=== PATIENT | female | born 1950 | race Caucasian/White ===

== ENCOUNTER 2021-08-08 09:01 | Outpatient (REF) | payer OTHER, SELFPAY ==
--- NOTE | ~2021-08-08 | XR_ITS ---
EXAMINATION: XR SACROILIAC JOINTS XR LUMBAR SPINE XR SHOULDER, RIGHT CLINICAL INFORMATION: Spondylosis without myelopathy or radiculopathy. COMPARISON: None. TECHNIQUE: Lumbar spine 3 views. Right shoulder 4 views. SI joints 3 views. FINDINGS: LUMBAR SPINE: There is normal lumbar lordosis. There is mild loss of L5-S1 disc height. The vertebral heights and alignment are normal. There is no visible acute fracture, dislocation or subluxation. No lytic or sclerotic process seen. The paravertebral soft tissues are normal. SI JOINTS: There is normal symmetry of bilateral SI joints without sclerosis. No fracture or lytic process seen involving the sacrum. There is moderate stool in the right colon. RIGHT SHOULDER: There is no visible acute fracture, dislocation or subluxation seen. Mild loss of right AC joint space with periarticular spurring. There are no loose bodies. The soft tissues are normal. There is nonspecific sclerosis overlying the right posterior 3rd rib adjacent to the costovertebral junction. There is mild haziness in the right upper lobe on AP view question artifact versus underlying infiltrate. XR/XR sacroiliac joint min 3V IMPRESSION: Unremarkable lumbar spine exam. No visible acute fracture or dislocation seen. Mild degenerative disc changes L5-S1 disc level. Unremarkable SI joints and sacrum. Mild periarticular spurring with loss of right AC joint space suggestive of degenerative arthritis. Nonspecific sclerosis right posterior 3rd rib. Mild haziness in the right upper lobe and second interspace on AP view question atelectasis/infiltrate versus artifact.
--- NOTE | ~2021-08-08 | XR_ITS ---
EXAMINATION: XR SACROILIAC JOINTS XR LUMBAR SPINE XR SHOULDER, RIGHT CLINICAL INFORMATION: Spondylosis without myelopathy or radiculopathy. COMPARISON: None. TECHNIQUE: Lumbar spine 3 views. Right shoulder 4 views. SI joints 3 views. FINDINGS: LUMBAR SPINE: There is normal lumbar lordosis. There is mild loss of L5-S1 disc height. The vertebral heights and alignment are normal. There is no visible acute fracture, dislocation or subluxation. No lytic or sclerotic process seen. The paravertebral soft tissues are normal. SI JOINTS: There is normal symmetry of bilateral SI joints without sclerosis. No fracture or lytic process seen involving the sacrum. There is moderate stool in the right colon. RIGHT SHOULDER: There is no visible acute fracture, dislocation or subluxation seen. Mild loss of right AC joint space with periarticular spurring. There are no loose bodies. The soft tissues are normal. There is nonspecific sclerosis overlying the right posterior 3rd rib adjacent to the costovertebral junction. There is mild haziness in the right upper lobe on AP view question artifact versus underlying infiltrate. XR/XR lumbar spine 2-3V IMPRESSION: Unremarkable lumbar spine exam. No visible acute fracture or dislocation seen. Mild degenerative disc changes L5-S1 disc level. Unremarkable SI joints and sacrum. Mild periarticular spurring with loss of right AC joint space suggestive of degenerative arthritis. Nonspecific sclerosis right posterior 3rd rib. Mild haziness in the right upper lobe and second interspace on AP view question atelectasis/infiltrate versus artifact.
--- NOTE | ~2021-08-08 | XR_ITS ---
EXAMINATION: XR SACROILIAC JOINTS XR LUMBAR SPINE XR SHOULDER, RIGHT CLINICAL INFORMATION: Spondylosis without myelopathy or radiculopathy. COMPARISON: None. TECHNIQUE: Lumbar spine 3 views. Right shoulder 4 views. SI joints 3 views. FINDINGS: LUMBAR SPINE: There is normal lumbar lordosis. There is mild loss of L5-S1 disc height. The vertebral heights and alignment are normal. There is no visible acute fracture, dislocation or subluxation. No lytic or sclerotic process seen. The paravertebral soft tissues are normal. SI JOINTS: There is normal symmetry of bilateral SI joints without sclerosis. No fracture or lytic process seen involving the sacrum. There is moderate stool in the right colon. RIGHT SHOULDER: There is no visible acute fracture, dislocation or subluxation seen. Mild loss of right AC joint space with periarticular spurring. There are no loose bodies. The soft tissues are normal. There is nonspecific sclerosis overlying the right posterior 3rd rib adjacent to the costovertebral junction. There is mild haziness in the right upper lobe on AP view question artifact versus underlying infiltrate. XR/XR shoulder RT min 2V IMPRESSION: Unremarkable lumbar spine exam. No visible acute fracture or dislocation seen. Mild degenerative disc changes L5-S1 disc level. Unremarkable SI joints and sacrum. Mild periarticular spurring with loss of right AC joint space suggestive of degenerative arthritis. Nonspecific sclerosis right posterior 3rd rib. Mild haziness in the right upper lobe and second interspace on AP view question atelectasis/infiltrate versus artifact.
[2021-08-08 12:14] LABS: Erythrocyte Sedimentation Rate 2 MM/HR (0-20)
== END 2021-08-08 09:02 | disposition home or self-care (01) ==
LOC: HO.XRAY 09:01
PROVIDERS: PCP Internal Medicine; Visit Provider Internal Medicine Rheumatology
DX: M54.50 Low back pain, unspecified (principal); M47.816 Spondylosis without myelopathy or radiculopathy, lumbar region; M19.049 Primary osteoarthritis, unspecified hand; M25.511 Pain in right shoulder
CPT/HCPCS: 36415; 72100; 72202; 73030; 85652; 86140; Q3014

== ENCOUNTER → 2021-08-28 10:43 | Outpatient (BNVA) | payer MEDICARE, SELFPAY | PROVIDERS: PCP Internal Medicine; Visit Provider Internal Medicine Rheumatology | DX: M47.816 Spondylosis without myelopathy or radiculopathy, lumbar region (principal); M75.81 Other shoulder lesions, right shoulder; M19.049 Primary osteoarthritis, unspecified hand; M79.7 Fibromyalgia; K21.9 Gastro-esophageal reflux disease without esophagitis | CPT/HCPCS: 99212 ==

== ENCOUNTER → 2021-11-28 10:26 | Outpatient (BNVA) | payer MEDICARE, SELFPAY | PROVIDERS: PCP Internal Medicine; Visit Provider Internal Medicine Rheumatology | DX: M79.7 Fibromyalgia (principal); M81.0 Age-related osteoporosis without current pathological fracture; M47.816 Spondylosis without myelopathy or radiculopathy, lumbar region; Z79.899 Other long term (current) drug therapy | CPT/HCPCS: 99212 ==

== ENCOUNTER → 2022-02-05 10:06 | Outpatient (BNVA) | payer MEDICARE, SELFPAY | PROVIDERS: PCP Internal Medicine; Visit Provider Internal Medicine | DX: R10.9 Unspecified abdominal pain (principal); R14.0 Abdominal distension (gaseous); K59.00 Constipation, unspecified; R19.7 Diarrhea, unspecified; Z86.010 Personal history of colon polyps | CPT/HCPCS: 99202 ==

== ENCOUNTER → 2022-02-26 12:15 | Outpatient (BNVA) | payer MEDICARE, SELFPAY | PROVIDERS: PCP Internal Medicine; Visit Provider Internal Medicine | DX: R10.9 Unspecified abdominal pain (principal); R14.0 Abdominal distension (gaseous); K59.00 Constipation, unspecified; R19.7 Diarrhea, unspecified; Z86.010 Personal history of colon polyps | CPT/HCPCS: 99212 ==

== ENCOUNTER 2023-02-04 11:18 | Outpatient (AMB) | payer MEDICARE, SELFPAY ==
--- NOTE | 2023-02-04 11:47 | MHC.OFFVIS ---
Intake Vital Signs 02/04/23 11:57 Height 5 ft 3 in Weight 178 lb 2.136 oz BMI 31.6 BP 100/62 Blood Pressure Location Lt brachial Position Sitting Pulse 68 Pulse Source Pulse Oximeter Pulse Oximetry (%) 96 Oxygen Delivery Method Room Air Intake Visit Reasons: OA Intake Note: Patient presents today for OA follow up. 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 Beware of potential sedation. rosuvastatin 10 mg PO BEDTIME sod sulf-pot chloride-mag sulf 1.479-0.188- 0.225 gram (Sutab) PO PER PKG DIR HPI HPI Comments History of Present Illness Details The patient returns for evaluation of her osteoarthritis and fibromyalgia. She was last seen in November of 2021. She relates difficulty with transportation so has not been able to keep many appointments. She continues to complain of lower back pain that radiates to the left buttock more than the right. It is worse with more prolonged standing or walking. She says it does limit her walking at this point. There is no paresthesia in the leg. There is no change in bowel or bladder habits. She remains on duloxetine 60 mg daily. She had been on Celebrex and Lyrica but decided to stop them as they were not that helpful. She feels that taking the cyclobenzaprine was helpful and it did not make her sedated. She had some GI appointments that she could not keep because of transportation issues. She again wants to do something about the left buttock and lower back pains. She says she has been to 2 pain clinics and was offered injections but they were not helpful. She did see a surgeon a few years ago and no surgery was recommended. Other areas of pain besides the back and buttock include the hands, shoulders, and neck. She has not seen any joint swelling. With difficulty walking she spent more time at home and feels somewhat isolated. She also says that she has been having trouble communicating with people, she often makes statements that people do not understand or agree with and that upsets them. 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 Osteoporosis Right rotator cuff tendinitis Social History (Updated 02/04/23 @ 11:57 by CORTNEY Cheek) Household Members Other:: lives alone Housing: Apartment Are you a primary youth care professional to a significant other at home: No Do you presently have visiting nurse or other home services: No 75 years or older and lives alone: No Alcohol intake: never Patient Tobacco Use Status: Current everyday Tobacco user Tobacco use type: Cigarette Cigarette Packs Per Day: 7 e-Cigarette/Vaping Use: Never Used service: No Current occupational status: disabled Review of Systems Const Details: She describes low energy and fatigue. Our records show she has lost some weight. She was not intending to lose weight. Negative for appetite change, fever, chills, malaise Eyes Details: Negative for vision change, dry eyes,headaches and dizziness ENT Details: Negative for dysphagia, hearing change, tinnitus, oral ulcer, nose bleeds and oral dryness. Card Details: Negative chest pain, edema and syncope Resp Details: Negative for SOB, cough and wheezing GI Details: Occasional heartburn and bloating. Negative nausea, abdominal pain, bowel changes, diarrhea, constipation and bloody stool. Skin/Breast Details: Negative for itching, rash, hives, Raynaud's symptoms, sun sensitivity, and skin cancer Psych Details: Feels isolated, says family members do not want to talk to her. Endo Details: Negative for polyuria and polydypsia Billy/Lymph Details: Negative for excessive bruising or bleeding. Physical Exam Vital Signs: Last Vital Signs Pulse 68 02/04/23 11:57 BP 100/62 02/04/23 11:57 Pulse Ox 96 02/04/23 11:57 Oxygen Delivery Method Room Air 02/04/23 11:57 BMI result Body Mass Index 31.6 APPEARANCE: Patient in no acute distress EYES no redness, pupils equal and reactive to light, eyelids normal EXTREMITIES:? No edema, no calf tenderness, normal peripheral pulses. NEURO:? Oriented and alert x3.? No focal weakness.? Reflexes symmetric.? Gait normal. SKIN:? No inflammatory or neoplastic lesions.? Normal color and turgor JOINT EXAM:.?? Cervical Spine:.? Mild discomfort with extremes of range of motion.? There is some bilateral posterior? muscle tenderness. Thoracic Spine:.? No scoliosis.? No tenderness on palpation. Lumbar Spine:.? Alignment normal.? Lumbar pain with flexion at 60 degrees.? Straight leg raising is negative.? No tenderness. Chest Wall:? There is some prominence of the right acromioclavicular joint.? This area is not tender or fluctuant.? Otherwise this region has no tenderness, swelling, increased warmth or erythema. Hands:.? Right:? There is some bony enlargement without tenderness at the thumb IP and at the 2nd through 5th PIP joints.? Elsewhere no swelling or tenderness, no thenar atrophy or sensory loss.? Left:? Mild bony enlargement at the thumb IP and the 2nd PIP joint.? The PIP has some flexion deformity and is minimally tender.? There is slight bony enlargement and tenderness at the 2nd D IP.? No thenar atrophy or sensory loss. Wrists:.? Right:? There is a nontender 1 cm lump on the dorsum of the wrist consistent with a ganglion.? There is no other swelling in the wrist and it is not tender.? Pain-free range of motion exists.? Left:Normal pain-free range of motion without tenderness, swelling, increased warmth or erythema. Elbows:. Normal pain-free range of motion without tenderness, swelling, increased warmth or erythema. Shoulders:? Right:? Slight discomfort with extremes of motion.? Most of the discomfort is felt anteriorly and over the trapezius.? Those areas have some slight tenderness.? There is no swelling or abductor weakness.? Left:Full range of motion without pain. No tenderness, weakness, swelling, increased warmth or erythema. Hips:.? Left:? Normal range of motion however with some discomfort in the lumbar and posterolateral buttock regions at the extremes of external rotation or abduction. No groin pain with motion.? Right:? The? range of motion without pain. Hip bursa:.? Mild trochanteric tenderness. Knees:.?? Normal pain-free range of motion without tenderness, swelling, increased warmth or erythema.? There is no effusion or crepitation Ankles:.? Normal pain-free range of motion without tenderness, swelling, increased warmth or erythema. Feet:.? Normal pain-free range of motion with mild 1st MTP bony enlargement, the right is slightly tender.? Elsewhere no? tenderness, swelling, increased warmth or erythema. Tender points:? Mild tenderness to digital palpation at the both trapezius, both second rib, both knees, greater trochanter? area bilaterally. Results Reviewed Results Reviewed: [address] [address] XRay Report Signed Patient: Laura Mcgraw MR#: [id number] : 1950 Acct:[id number] Age/Sex: 71 / F ADM Date: 08/08/[address]: Jose J Hadley MD Ordering Physician: Jose J Hadley MD Date of Service: 08/08/21 Procedure(s): XR sacroiliac joint min 3V Accession Number(s): [id number] cc: Jose J Hadley MD~ EXAMINATION: XR SACROILIAC JOINTS XR LUMBAR SPINE XR SHOULDER, RIGHT CLINICAL INFORMATION: Spondylosis without myelopathy or radiculopathy. COMPARISON: None. TECHNIQUE: Lumbar spine 3 views. Right shoulder 4 views. SI joints 3 views. FINDINGS: LUMBAR SPINE: There is normal lumbar lordosis. There is mild loss of L5-S1 disc height. The vertebral heights and alignment are normal. There is no visible acute fracture, dislocation or subluxation. No lytic or sclerotic process seen. The paravertebral soft tissues are normal. SI JOINTS: There is normal symmetry of bilateral SI joints without sclerosis. No fracture or lytic process seen involving the sacrum. There is moderate stool in the right colon. RIGHT SHOULDER: There is no visible acute fracture, dislocation or subluxation seen. Mild loss of right AC joint space with periarticular spurring. There are no loose bodies. The soft tissues are normal. There is nonspecific sclerosis overlying the right posterior 3rd rib adjacent to the costovertebral junction. There is mild haziness in the right upper lobe on AP view question artifact versus underlying infiltrate. XR/XR sacroiliac joint min 3V IMPRESSION: Unremarkable lumbar spine exam. No visible acute fracture or dislocation seen. Mild degenerative disc changes L5-S1 disc level. Unremarkable SI joints and sacrum. Mild periarticular spurring with loss of right AC joint space suggestive of degenerative arthritis. Nonspecific sclerosis right posterior 3rd rib. Mild haziness in the right upper lobe and second interspace on AP view question atelectasis/infiltrate versus artifact. Dictated By: Shad Causey MD Assessment & Plan Assessment & Plan (1) Osteoarthritis of hand: Code(s): M19.049 - Primary osteoarthritis, unspecified hand (2) Osteoarthritis of lumbar spine: Code(s): M47.816 - Spondylosis without myelopathy or radiculopathy, lumbar region Plan There do not appear to be any signs of an active inflammatory arthritis. There are findings of OA in the hands. She does have low back pain symptoms radiating to the buttock, worse with walking suggesting a spinal stenosis type picture from degenerative disease. Apparently she has sought out pain management before but refuses to reconsider that because she feels they will just do the same procedures and she does not want any needles. NSAIDs have not been tolerated or helpful recently. She also seems to have some element of fibromyalgia with many tender points. I did restart her cyclobenzaprine which she describes as being helpful but warned her that it could be sedating and she should only take it at night. She complains of loneliness and has trouble dealing with family members. Behavior health assessment would be appropriate here. She does not know how to access mental health through her insurance and we went over on her insurance card that there was a telephone number for behavior health consultations. She would let me know if she thinks she needs a referral. A follow-up in 6 months seems reasonable. Medications: Refilled cyclobenzaprine 5 mg PO BID PRN 30 tabs 3RF muscle spasm M79.7 - Fibromyalgia Coding Level of Care Code Tele Est Pt Level 3 (17774) Diagnoses Osteoarthritis of hand M19.049 Osteoarthritis of lumbar spine M47.816
[2023-02-04 11:57] VITALS: BP 100/62; PULSE 68; O2SAT 96; BMI 31.6
== END 2023-02-04 12:50 | disposition home or self-care (01) ==
PROVIDERS: PCP Internal Medicine; Visit Provider Internal Medicine Rheumatology
DX: M19.049 Primary osteoarthritis, unspecified hand (principal); M47.816 Spondylosis without myelopathy or radiculopathy, lumbar region
CPT/HCPCS: 99213

== ENCOUNTER → 2023-02-04 11:18 | Outpatient (BNVA) | payer MEDICARE, SELFPAY | PROVIDERS: PCP Internal Medicine; Visit Provider Internal Medicine Rheumatology | DX: M47.816 Spondylosis without myelopathy or radiculopathy, lumbar region (principal); M19.041 Primary osteoarthritis, right hand; M19.042 Primary osteoarthritis, left hand | CPT/HCPCS: 99212 ==

== ENCOUNTER 2023-07-23 10:59 | Outpatient (AMB) | payer MEDICARE, SELFPAY ==
--- NOTE | 2023-07-23 11:06 | A.SPINEOV_ITS ---
Intake Intake Visit Reasons: lower back & hip chronic pain Intake Note: Ms. Mcgraw is here today c/o low back pain that radiates to Glutes down to the back of the knees. Administrative Sales Assistant Required: No Allergies No Known Allergies Allergy (Verified 07/23/23 11:08) Assessment & Plan Assessment & Plan (1) Chronic left hip pain: Code(s): M25.552 - Pain in left hip; G89.29 - Other chronic pain Plan Dear colleague On 07/23/2023, I saw Laura Mcgraw for right hip pain. She self-referred. HPI: Patient states that for more than 20 years she is having chronic pain in her left hip. Pain is severe and prevents her from doing long walks. She denies radiating pain down her leg. No motor sensory deficits. She has seen multiple orthopedic surgeons. The last 1 advised a cortisone injection. The following conservative treatment options were tried without success antiinflammatories, tylenol, physician guided home exercise plan, cortisone shots Physical Exam: Inward and outward rotation of the left hip is very painful. Straight leg raise is negative. No neurological deficits. Radiological Studies: An MRI of the left hip reports several abnormalities in this region. I also review an x-ray of the lumbar spine of July 2021 that showed no significant abnormality Impression/Plan: This patient is suffering from left hip pathology. I told her to return to an orthopedic surgeon as these symptoms are not related to the spine. Thank you for allowing me to participate in your patients care. total time spent was 30 minutes in counseling ,coordination of plan, personal review of imaging. Benny Guillen MD, PhD Spine Fellowship Trained Neurosurgeon Director, [facility] Coding Level of Care Code New Pt Level 3 (04049) Diagnoses Chronic left hip pain M25.552; G89.29
== END 2023-07-23 11:29 | disposition home or self-care (01) ==
PROVIDERS: PCP Internal Medicine; Visit Provider Neurological Surgery
DX: M25.552 Pain in left hip (principal); G89.29 Other chronic pain
CPT/HCPCS: 99203

== ENCOUNTER → 2023-07-23 10:59 | Outpatient (BNVA) | payer MEDICARE, SELFPAY | PROVIDERS: PCP Internal Medicine; Visit Provider Neurological Surgery | DX: M25.552 Pain in left hip (principal); G89.29 Other chronic pain | CPT/HCPCS: 99202 ==

== ENCOUNTER 2023-08-06 13:08 | Outpatient (REF) | payer MEDICARE, SELFPAY ==
[2023-08-06 17:22] LABS: Anion Gap 12 (12-20); Blood Urea Nitrogen 13 mg/dL (9-16); Calcium 8.9 mg/dL (8.4-10.2); Carbon Dioxide 25 mmol/L (22-29); Chloride 107 mmol/L (96-108); Estimated Glomerular Filt Rate > 60; Glucose Random 85 mg/dL (60-115); Potassium 4.3 mmol/L (3.3-5.1); Sodium 140 mmol/L (135-145)
== END 2023-08-06 13:09 | disposition home or self-care (01) ==
LOC: HO.LAB 13:08
PROVIDERS: PCP Internal Medicine; Visit Provider Student in an Organized Health Care Education/Training Program
DX: M19.049 Primary osteoarthritis, unspecified hand (principal); M79.7 Fibromyalgia; M70.72 Other bursitis of hip, left hip
CPT/HCPCS: 36415; 80048; 99212

== ENCOUNTER 2023-08-06 13:08 | Outpatient (AMB) | payer MEDICARE, SELFPAY ==
[2023-08-06 13:43] VITALS: BP 112/66; PULSE 87; O2SAT 95; BMI 33.1
--- NOTE | 2023-08-06 13:43 | MHC.OFFVIS ---
Intake Vital Signs 08/06/23 13:43 Height 5 ft 3 in Weight 186 lb 15.232 oz BMI 33.1 BP 112/66 Blood Pressure Location Rt brachial Position Sitting Pulse 87 Pulse Source Pulse Oximeter Pulse Oximetry (%) 95 Oxygen Delivery Method Room Air Intake Visit Reasons: OA Intake Note: Patient last seen presents today for follow up and test results. Pain in hips, thighs and glutes. Uses heat, ointment and has muscle relaxers. 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 Her 1st visit with me. She used to follow-up with Dr. Hadley. Patient states that she takes that duloxetine 60 mg daily, she takes the Lyrica 50 mg once daily, not twice daily as prescribed. She has been having pain in her left buttock, hip and bilateral thigh area. She had an MRI of the left hip 04/2023 which showed iliopsoas bursitis and gluteus tendinopathy. Patient is not interested in pain management or sports medicine evaluation. She continues to have diffuse itching, tingling and numbness as well as pain in her hands, back. Most recent history by Dr. Hadley 01/2023: The patient returns for evaluation of her osteoarthritis and fibromyalgia. She was last seen in November of 2021. She relates difficulty with transportation so has not been able to keep many appointments. She continues to complain of lower back pain that radiates to the left buttock more than the right. It is worse with more prolonged standing or walking. She says it does limit her walking at this point. There is no paresthesia in the leg. There is no change in bowel or bladder habits. She remains on duloxetine 60 mg daily. She had been on Celebrex and Lyrica but decided to stop them as they were not that helpful. She feels that taking the cyclobenzaprine was helpful and it did not make her sedated. She had some GI appointments that she could not keep because of transportation issues. She again wants to do something about the left buttock and lower back pains. She says she has been to 2 pain clinics and was offered injections but they were not helpful. She did see a surgeon a few years ago and no surgery was recommended. Other areas of pain besides the back and buttock include the hands, shoulders, and neck. She has not seen any joint swelling. With difficulty walking she spent more time at home and feels somewhat isolated. She also says that she has been having trouble communicating with people, she often makes statements that people do not understand or agree with and that upsets them. 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 Low back pain Social History Household Members Other:: lives alone Housing: Apartment Are you a primary career portals teacher to a significant other at home: No Do you presently have visiting nurse or other home services: No 75 years or older and lives alone: No Alcohol intake: never Patient Tobacco Use Status: Current everyday Tobacco user Tobacco use type: Cigarette Cigarette Packs Per Day: 7 e-Cigarette/Vaping Use: Never Used service: No Current occupational status: disabled Review of Systems ENT Reports neck pain Musc Reports back pain, Reports arthralgias, Reports neck pain, Reports numbness, Reports stiffness and Reports tingling Neuro Reports numbness and Reports tingling Physical Exam Vital Signs: Last Vital Signs Pulse 87 08/06/23 13:43 BP 112/66 08/06/23 13:43 Pulse Ox 95 08/06/23 13:43 Oxygen Delivery Method Room Air 08/06/23 13:43 BMI result Body Mass Index 33.1 Const General: cooperative, healthy appearing and comfortable Nutritional Appearance: obese Orientation/consciousness: patient oriented x3 Limitations: no limitations HEENT Head: Yes normocephalic and Yes atraumatic Mouth: moist mucous membranes Resp Effort & Inspection: normal respiratory effort and able to speak in complete sentences Auscultation: clear to auscultation bilaterally Cardio Rate: regular rate Rhythm: regular rhythm Heart sounds: S1 normal heart sound present Skin General skin exam: no rashes or lesions noted Neuro General: patient oriented x3 Extrem Other: Osteoarthritic changes of both hands with no active synovitis Normal nailfold capillaroscopy Normal range of motion of hands, wrists, elbows and shoulders without pain Proximal muscle strength 5/5 all 4 extremities Some pain with left hip flexion Assessment & Plan Assessment & Plan (1) Fibromyalgia: Code(s): M79.7 - Fibromyalgia Plan: 73-year-old female with fibromyalgia and degenerative arthritis returns for follow-up. This is her 1st visit with me. She used to follow-up with Dr. Hadley. We had a long conversation today. Discussed management of fibromyalgia with patient. Is a noninflammatory, non-autoimmune central afferent processing disorder leading to a diffuse pain syndrome. I suggested that patient try to address her underlying psychiatric issues, anxiety/depression. She recently established care with a psychotherapist. I suggested a referral for a sleep study by her PCP. We discussed the importance of exercise for fibromyalgia management. I suggested aquatherapy. Patient is on duloxetine 60 mg daily. She is taking the Lyrica 50 mg once daily, not twice daily as prescribed. She will start taking it twice daily (2) Iliopsoas bursitis of left hip: Code(s): M70.72 - Other bursitis of hip, left hip Plan: Patient is not interested in physical therapy. Not interested in pain management or physiatry evaluation. Can consider short NSAID trial. But patient needs BMP 1st to monitor her kidney function Plan I spent 47 minutes reviewing patient's chart, evaluating patient, ordering diagnostic workup, counseling patient and documenting in the chart Orders: Orders Basic Metabolic Panel Today M19.049 - Primary osteoarthritis, unspecified hand Coding Level of Care Code Est Pt Level 5 (11735) Diagnoses Fibromyalgia M79.7 Iliopsoas bursitis of left hip M70.72
== END 2023-08-06 14:18 | disposition home or self-care (01) ==
PROVIDERS: PCP Internal Medicine; Visit Provider Student in an Organized Health Care Education/Training Program
DX: M79.7 Fibromyalgia (principal); M70.72 Other bursitis of hip, left hip
CPT/HCPCS: 99215

== ENCOUNTER 2024-09-23 13:00 | Outpatient (AMB) | payer MEDICARE, MEDICAID, SELFPAY ==
--- OUTSIDE RECORDS SUMMARY | 2024-09-23 13:02 | XMS_ITS | Data Portability ---
Author Organization [facility], Main Office Address [address] [place] [address] Care Team Providers Care Valance Cutter Name Role Phone THUY FERNANDES Primary Care Provider ROSA HERNANDEZ Referring Provider [facility] Referring Pr ovider [facility] Gum Sprayer [facility] Referring Provider ISAEL BAKER Referring Provider [phone] [facility] (NADEEM MURCIA) Referring Provider MANJIT HADLEY Referring Provider [facility] SAMAN CALDERON Referring Provider Assessment Encounter Date Assessment Date Assessment LastModified by Organization Details LastModified Time 05/30/2022 05/30/2022 This service was provided using telemedicine. Patient consented to telephone visit Patient was located in the [facility]. Provider was located in the office. No other persons participated in the telemedicine visit except for the patient unless otherwise indicated here. Total time of visit was 20 minutes. [email or web address] Not available 05/31/2022 11:17:50 09/05/2022 09/05/2022 This service was provided using telemedicine. Patient consented to telephone visit Patient was located in the [facility]. Provider was located in the office. No other persons participated in the telemedicine visit except for the patient unless otherwise indicated here. Total time of visit was 14 minutes. [email or web address] Not available 09/05/2022 13:58:08 Plan of Treatment Reminders Order Date Submit Date Provider Last Modified By Organization Details Last Modified Time Details Appointments None recor ded. Lab lipid panel , serum 2022 023 [email or web address] [facility], [address], [address], [place], [id number], 08:09:51 LDL, serum 2022 023 [email or web address] [facility], [address], [address], [place], [address], 08:09:51 CBC w/ auto diff 2022 023 KELSYE [facility], [address], [address], [place], [address], 15:44:38 BMP, serum or plasm a 2022 023 KELSEY [facility], [address], [address], [place], [address], 15:44:39 TSH, serum or plasm a 2022 023 KELSEY [facility], [address], [address], [place], [address], 15:44:39 unlis florencio lab - urina lysis w/ref issac cultu re 2022 023 KELSEY [facility], [address], [address], [place], [address], 21:21:42 lipid panel , serum 2022 023 KELSEY [facility], [address], [address], [place], [address], 21:46:23 LDL, serum 2022 023 KELSEY [facility], [address], [address], [place], [address], 3 21:46:20 CBC w/ auto diff 2022 023 KELSEY [facility], [address], [address], [place], [address], 3 20:10:19 BMP, serum or plasm a 2022 023 KELSEY [facility], [address], [address], [place], [address], 3 21:46:18 TSH, serum or plasm a 2022 023 KELSEY [facility], [address], [address], [place], [address], 3 21:46:23 enrique tin, serum or plasm a 2022 023 KELSEY [facility], [address], [address], [place], [address], 3 21:46:21 iron + total iron- renea ng capac ity (TIBC ), serum 2022 023 KELSEY [facility], [address], [address], [place], [address], 3 21:46:22 CMP, serum or plasm a 2021 022 KELSEY [facility], [address], [address], [place], [address], 2 21:57:49 CBC w/ auto diff 2021 022 KELSEY [facility], [address], [address], [place], [address], 21:05:07 lakeisha stero l, total , serum 2021 AIKEN [facility], [address], [address], [place], [address], 21:57:47 LDL, serum 2021 AIKEN [facility], [address], [address], [place], [address], 21:57:52 HDL lakeisha stero l, serum 2021 AIKEN [facility], [address], [address], [place], [address], 21:57:54 Referral derma tolog ist refer ral - Pruri tic disor reid 2022 023 davie [facility], [address], [address], [place], [address], 15:55:25 gastr oentjose estevezog ist refer ral - Needs colon cance r screjose nullg 2021 [facility], [address] [place] [address] Dr, [address], [place], [address], 21:24:27 Procedures colon oscop y genesis mckeon (PROC ) 2021 022 davie Not available 14:20:04 Surgeries None recor ded. Imaging None recor ded. Medication Orders dulox etine 60 mg capsu le,de layed relea se 2022 023 AIKEN [id number], [address] [place] [address], [address], [place], [id number], 15:44:35 trama dol 50 mg table t 2022 023 acegileramadelyno [facility] #[id number], [address], [facility] [address], [place], [place], [id number], 10:28:32 Patient TargetsNo targets recorded. Patient Instructions Encounter Date Encounter Id Patient Instructions Last Modified By Organization Details Last Modified Time 01/14/2022 [id number] irritable bowel syndrome: care instructions [email or web address] Not available 01/15/2022 10:32:18 learning about colon cancer [email or web address] Not available 01/18/2022 13:08:22 fibromyalgia: care instructions [email or web address] Not available 01/15/2022 10:32:18 high cholesterol: care instructions [email or web address] Not available 01/14/2022 14:55:17 05/30/2022 [id number] back care and preventing injuries: care instructions [email or web address] Not available 05/31/2022 11:18:42 getting back to normal after low back pain: care instructions acennerazzo Not available 05/31/2022 11:18:42 learning about relief for back pain acennerazzo Not available 05/31/2022 11:18:43 07/16/2022 [id number] fibromyalgia: care instructions acennerazzo Not available 07/16/2022 15:15:10 09/05/2022 [id number] blood in the urine: care instructions [email or web address] Not available 09/05/2022 13:58:15 02/17/2023 [id number] Peripheral Arterial Disease (PAD): Care Instructions [email or web address] Not available 02/17/2023 15:27:12 high cholesterol: care instructions [email or web address] Not available 02/17/2023 15:44:29 Reason for Referral Gum Sprayer Referral for Screening for malignant neoplasm of colon Needs colon cancer screening Referring Physician: [facility], Encounter Date: 01/14/2022 Spark Plug Tester Referral for P ruritic disorder Pruritic disorder Referring Physician: [facility], Encounter Date: 02/17/2023 Results Created Date Observation Date Name Description Value Unit Range Abnormal Flag Note LastModifiedBy Organization Detail LastModifiedTime 01/15/2001/14/2022 COMPL ETE BLOOD COUNT WBC 8.0 K/mm3 (4.0-1 1.0) Not Available [facility] (Centralized Electronic Ordering - All Locations) Patient Can Go To The Location Of Their Choice, 01/14/2022 21:05:07 01/15/20 22 01/14/2022 COMPL ETE BLOOD COUNT RBC 4.71 M/mm3 (4.20- 5.40) Not Available [facility] (Centralized Electronic Ordering - All Locations) Patient Can Go To The Location Of Their Choice, 01/14/2022 21:05:07 01/15/20 22 01/14/2022 COMPL ETE BLOOD COUNT HGB 14.3 gm/dL (11.7- 15.5) Not Available [facility] (Centralized Electronic Ordering - All Locations) Patient Can Go To The Location Of Their Choice, 01/14/2022 21:05:07 01/15/2001/14/2022 COMPL ETE BLOOD COUNT HCT 42.5 % (35.7- 45.8) Not Available [facility] (Centralized Electronic Ordering - All Locations) Patient Can Go To The Location Of Their Choice, 01/14/2022 21:05:07 01/15/2001/14/2022 COMPL ETE BLOOD COUNT MCV 90.2 fL (80.0- 100.0) Not Available [facility] (Centralized Electronic Ordering - All Locations) Patient Can Go To The Location Of Their Choice, 01/14/2022 21:05:07 01/15/2001/14/2022 COMPL ETE BLOOD COUNT MCH 30.4 pg (27.0- 34.0) Not Available [facility] (Centralized Electronic Ordering - All Locations) Patient Can Go To The Location Of Their Choice, 01/14/2022 21:05:07 01/15/20 22 01/14/2022 COMPL ETE BLOOD COUNT MCHC 33.6 g/dL (33.0- 37.0) Not Available [facility] (Centralized Electronic Ordering - All Locations) Patient Can Go To The Location Of Their Choice, 01/14/2022 21:05:07 09/19/20 22 01/14/2022 COMPL ETE BLOOD COUNT plt 321 K/mm3 (150-4 60) Not Available [facility] (Centralized Electronic Ordering - All Locations) Patient Can Go To The Location Of Their Choice, 01/14/2022 21:05:07 01/15/20 22 01/14/2022 COMPL ETE BLOOD COUNT RDW-SD 41.4 fL (<47.0 ) Not Available [facility] (Centralized Electronic Ordering - All Locations) Patient Can Go To The Location Of Their Choice, 01/14/2022 21:05:07 01/15/20 22 01/14/2022 COMPL ETE BLOOD COUNT MPV 10.0 fL (9.4-1 2.4) Not Available [facility] (Centralized Electronic Ordering - All Locations) Patient Can Go To The Location Of Their Choice, 01/14/2022 21:05:07 01/15/20 22 01/14/2022 COMPL ETE BLOOD COUNT automated NRBC 0.0 #/100 _WBC' s Not Available [facility] (Centralized Electronic Ordering - All Locations) Patient Can Go To The Location Of Their Choice, 01/14/2022 21:05:07 01/15/20 22 01/14/2022 COMPL ETE BLOOD COUNT abs. NRBC 0.0 K/mm3 Not Available [facility] (Centralized Electronic Ordering - All Locations) Patient Can Go To The Location Of Their Choice, 01/14/2022 21:05:07 01/15/20 22 01/14/2022 LAKEISHA STERO L, TOTAL cholesterol, total 310 mg/dL (<200) high Not Available [facility] (Centralized Electronic Ordering - All Locations) Patient Can Go To The Location Of Their Choice, 01/14/2022 21:57:47 01/15/20 22 01/14/2022 COMPR EHENS JERICA METAB OLIC PANL glucose 95 mg/dL (70-99 ) Not Available [facility] (Centralized Electronic Ordering - All Locations) Patient Can Go To The Location Of Their Choice, 01/14/2022 21:57:49 01/15/20 22 01/14/2022 COMPR EHENS JERICA METAB OLIC PANL BUN 13 mg/dL (8-23) Not Available [facility] (Centralized Electronic Ordering - All Locations) Patient Can Go To The Location Of Their Choice, 01/14/2022 21:57:49 01/15/20 22 01/14/2022 COMPR EHENS JERICA METAB OLIC PANL creatinine 0.9 mg/dL (0.5-1 .0) Not Available [facility] (Centralized Electronic Ordering - All Locations) Patient Can Go To The Location Of Their Choice, 01/14/2022 21:57:49 01/15/20 22 01/14/2022 COMPR EHENS JERICA METAB OLIC PANL sodium 143 mmol/ L (133-1 45) Not Available [facility] (Centralized Electronic Ordering - All Locations) Patient Can Go To The Location Of Their Choice, 01/14/2022 21:57:49 01/15/20 22 01/14/2022 COMPR EHENS JERICA METAB OLIC PANL potassium 5.3 mmol/ L (3.6-5 .2) high Not Available [facility] (Centralized Electronic Ordering - All Locations) Patient Can Go To The Location Of Their Choice, 01/14/2022 21:57:49 01/15/20 22 01/14/2022 COMPR EHENS JERICA METAB OLIC PANL chloride 104 mmol/ L (98-10 7) Not Available [facility] (Centralized Electronic Ordering - All Locations) Patient Can Go To The Location Of Their Choice, 01/14/2022 21:57:49 01/15/20 22 01/14/2022 COMPR EHENS JERICA METAB OLIC PANL bicarbonate 28 mmol/ L (22-29 ) Not Available [facility] (Centralized Electronic Ordering - All Locations) Patient Can Go To The Location Of Their Choice, 01/14/2022 21:57:49 01/15/20 22 01/14/2022 COMPR EHENS JERICA METAB OLIC PANL anion gap 11 (4-17) Not Available [facility] (Centralized Electronic Ordering - All Locations) Patient Can Go To The Location Of Their Choice, 01/14/2022 21:57:49 01/15/20 22 01/14/2022 COMPR EHENS JERICA METAB OLIC PANL albumin 4.7 gm/dL (3.4-4 .8) Not Available [facility] (Centralized Electronic Ordering - All Locations) Patient Can Go To The Location Of Their Choice, 01/14/2022 21:57:49 01/15/20 22 01/14/2022 COMPR EHENS JERICA METAB OLIC PANL calcium 9.5 mg/dL (8.6-1 0.5) Not Available [facility] (Centralized Electronic Ordering - All Locations) Patient Can Go To The Location Of Their Choice, 01/14/2022 21:57:49 01/15/20 22 01/14/2022 COMPR EHENS JERICA METAB OLIC PANL bilirubin,to christiano 0.2 mg/dL (0-1.2 ) Not Available [facility] (Centralized Electronic Ordering - All Locations) Patient Can Go To The Location Of Their Choice, 01/14/2022 21:57:49 01/15/2001/14/2022 COMPR EHENS JERICA METAB OLIC PANL total protein 7.0 gm/dL (6.2-8 .2) Not Available [facility] (Centralized Electronic Ordering - All Locations) Patient Can Go To The Location Of Their Choice, 01/14/2022 21:57:49 01/15/2001/14/2022 COMPR EHENS JERICA METAB OLIC PANL Ag ratio 2.0 Not Available [facility] (Centralized Electronic Ordering - All Locations) Patient Can Go To The Location Of Their Choice, 01/14/2022 21:57:49 01/15/2001/14/2022 COMPR EHENS JERICA METAB OLIC PANL AST 26 U/L (0-32) Not Available [facility] (Centralized Electronic Ordering - All Locations) Patient Can Go To The Location Of Their Choice, 01/14/2022 21:57:49 01/15/2001/14/2022 COMPR EHENS JERICA METAB OLIC PANL alk phos 92 U/L (35-10 4) Not Available [facility] (Centralized Electronic Ordering - All Locations) Patient Can Go To The Location Of Their Choice, 01/14/2022 21:57:49 01/15/20 22 01/14/2022 COMPR EHENS JERICA METAB OLIC PANL ALT 37 U/L (0-33) high Not Available [facility] (Centralized Electronic Ordering - All Locations) Patient Can Go To The Location Of Their Choice, 01/14/2022 21:57:49 01/15/2001/14/2022 COMPR EHENS JERICA METAB OLIC PANL estimated GFR creatinine 71 mL/mi n/1.7 3_M2 Creat inine based estim ated glome rular filtr ation (eGFR ) in adult s is calcu lated using the Natio nal Kidne y Found ation recom neli d 2020 CKD-E PI equat ion. Estim ates GFR from serum creat inine , age and sex. Not Available [facility] (Centralized Electronic Ordering - All Locations) Patient Can Go To The Location Of Their Choice, 01/14/2022 21:57:49 01/15/2001/14/2022 LDL LAKEISHA STERO L, DIREC T LDL cholesterol, direct 198 mg/dL (<130) high Not Available [facility] (Centralized Electronic Ordering - All Locations) Patient Can Go To The Location Of Their Choice, 01/14/2022 21:57:52 01/15/2001/14/2022 HDL CHOL HDL chol 64 mg/dL (>39) Not Available [facility] (Centralized Electronic Ordering - All Locations) Patient Can Go To The Location Of Their Choice, 01/14/2022 21:57:54 05/10/1905/10/2022 ALT ALT 20 U/L (0-33) Not Available [facility] (Centralized Electronic Ordering - All Locations) Patient Can Go To The Location Of Their Choice, 05/10/2022 19:38:37 05/10/1905/10/2022 LIPID PANEL cholesterol, total 157 mg/dL (<200) Not Available [facility] (Centralized [facility] Ordering - All Locations) Patient Can Go To The Location Of Their Choice, 05/10/2022 19:38:38 05/10/19 23 05/10/2022 LIPID PANEL triglyceride 225 mg/dL (<150) high Not Available [facility] (Central[facility] Ordering - All Locations) Patient Can Go To The Location Of Their Choice, 05/10/2022 19:38:38 05/10/19 23 05/10/2022 LIPID PANEL HDL chol 59 mg/dL (>39) Not Available [facility] (Centralized Electronic Ordering - All Locations) Patient Can Go To The Location Of Their Choice, 05/10/2022 19:38:38 05/10/1905/10/2022 LIPID PANEL LDL cholesterol, calculated 53 mg/dL (0-130 ) Not Available [facility] (Centralized Electronic Ordering - All Locations) Patient Can Go To The Location Of Their Choice, 05/10/2022 19:38:38 05/10/1905/10/2022 LIPID PANEL non HDL cholesterol (calc) 98 mg/dL (<160) Not Available [facility] (Centralized Electronic Ordering - All Locations) Patient Can Go To The Location Of Their Choice, 05/10/2022 19:38:38 07/17/1907/16/2022 COMPL ETE CBC WITH DIFF WBC 8.8 K/mm3 (4.0-1 1.0) Not Available [facility] (Centralized Electronic Ordering - All Locations) Patient Can Go To The Location Of Their Choice, 07/16/2022 20:10:07/17/1907/16/2022 COMPL ETE CBC WITH DIFF RBC 4.66 M/mm3 (4.20- 5.40) Not Available [facility] (Centralized Electronic Ordering - All Locations) Patient Can Go To The Location Of Their Choice, 07/16/2022 20:10:07/17/1907/16/2022 COMPL ETE CBC WITH DIFF HGB 13.9 gm/dL (11.7- 15.5) Not Available [facility] (Centralized Electronic Ordering - All Locations) Patient Can Go To The Location Of Their Choice, 07/16/2022 20:10:19 07/17/1907/16/2022 COMPL ETE CBC WITH DIFF HCT 43.2 % (35.7- 45.8) Not Available [facility] (Centralized Electronic Ordering - All Locations) Patient Can Go To The Location Of Their Choice, 07/16/2022 20:10:07/17/1907/16/2022 COMPL ETE CBC WITH DIFF MCV 92.7 fL (80.0- 100.0) Not Available [facility] (Centralized Electronic Ordering - All Locations) Patient Can Go To The Location Of Their Choice, 07/16/2022 20:10:19 07/17/1918 0707/16/2022 COMPL ETE CBC WITH DIFF MCH 29.8 pg (27.0- 34.0) Not Available [facility] (Centralized Electronic Ordering - All Locations) Patient Can Go To The Location Of Their Choice, 07/16/2022 20:10:07/17/1907/16/2022 COMPL ETE CBC WITH DIFF MCHC 32.2 g/dL (33.0- 37.0) low Not Available [facility] (Centralized Electronic Ordering - All Locations) Patient Can Go To The Location Of Their Choice, 07/16/2022 20:10:07/17/19 23 07/16/2022 COMPL ETE CBC WITH DIFF plt 297 K/mm3 (150-4 60) Not Available [facility] (Centralized Electronic Ordering - All Locations) Patient Can Go To The Location Of Their Choice, 07/16/2022 20:10:07/17/1907/16/2022 COMPL ETE CBC WITH DIFF RDW-SD 43.4 fL (<47.0 ) Not Available [facility] (Centralized Electronic Ordering - All Locations) Patient Can Go To The Location Of Their Choice, 07/16/2022 20:10:07/17/1907/16/2022 COMPL ETE CBC WITH DIFF MPV 10.0 fL (9.4-1 2.4) Not Available [facility] (Centralized Electronic Ordering - All Locations) Patient Can Go To The Location Of Their Choice, 07/16/2022 20:10:07/17/1907/16/2022 COMPL ETE CBC WITH DIFF automated NRBC 0.0 #/100 _WBC' s Not Available [facility] (Centralized Electronic Ordering - All Locations) Patient Can Go To The Location Of Their Choice, 07/16/2022 20:10:07/17/1907/16/2022 COMPL ETE CBC WITH DIFF abs. NRBC 0.0 K/mm3 Not Available [facility] (Centralized Electronic Ordering - All Locations) Patient Can Go To The Location Of Their Choice, 07/16/2022 20:10:07/17/1907/16/2022 COMPL ETE CBC WITH DIFF neut # 3.8 K/mm3 (1.3-7 .0) Not Available [facility] (Centralized Electronic Ordering - All Locations) Patient Can Go To The Location Of Their Choice, 07/16/2022 20:10:07/17/1907/16/2022 COMPL ETE CBC WITH DIFF lymph # 4.2 K/mm3 (0.8-3 .1) high Not Available [facility] (Centralized Electronic Ordering - All Locations) Patient Can Go To The Location Of Their Choice, 07/16/2022 20:10:07/17/19 23 07/16/2022 COMPL ETE CBC WITH DIFF mono# 0.6 K/mm3 (0.4-0 .9) Not Available [facility] (Centralized Electronic Ordering - All Locations) Patient Can Go To The Location Of Their Choice, 07/16/2022 20:10:07/17/1907/16/2022 COMPL ETE CBC WITH DIFF eo # 0.2 K/mm3 (0.0-0 .4) Not Available [facility] (Centralized Electronic Ordering - All Locations) Patient Can Go To The Location Of Their Choice, 07/16/2022 20:10:07/17/1907/16/2022 COMPL ETE CBC WITH DIFF baso # 0.1 K/mm3 (0.0-0 .1) Not Available [facility] (Centralized Electronic Ordering - All Locations) Patient Can Go To The Location Of Their Choice, 07/16/2022 20:10:07/17/1907/16/2022 COMPL ETE CBC WITH DIFF abs. imm gran 0.0 K/mm3 Not Available [facility] (Centralized Electronic Ordering - All Locations) Patient Can Go To The Location Of Their Choice, 07/16/2022 20:10:07/17/1907/16/2022 COMPL ETE CBC WITH DIFF neut 42.7 % (44-76 ) low Not Available [facility] (Centralized Electronic Ordering - All Locations) Patient Can Go To The Location Of Their Choice, 07/16/2022 20:10:07/17/19 23 07/16/2022 COMPL ETE CBC WITH DIFF lymph 47.4 % (15-43 ) high Not Available [facility] (Centralized Electronic Ordering - All Locations) Patient Can Go To The Location Of Their Choice, 07/16/2022 20:10:07/17/1907/16/2022 COMPL ETE CBC WITH DIFF monocyte 7.2 % (4.5-1 0.5) Not Available [facility] (Centralized Electronic Ordering - All Locations) Patient Can Go To The Location Of Their Choice, [id number] 07/16/2022 20:10:19 07/17/1907/16/2022 COMPL ETE CBC WITH DIFF eo 1.8 % (0-6) Not Available [facility] (Centralized Electronic Ordering - All Locations) Patient Can Go To The Location Of Their Choice, [id number] 07/16/2022 20:10:07/17/1907/16/2022 COMPL ETE CBC WITH DIFF baso 0.7 % (0-2) Not Available [facility] (Centralized Electronic Ordering - All Locations) Patient Can Go To The Location Of Their Choice, [id number] 07/16/2022 20:10:07/17/1907/16/2022 COMPL ETE CBC WITH DIFF imm gran 0.2 % Not Available [facility] (Centralized Electronic Ordering - All Locations) Patient Can Go To The Location Of Their Choice, [id number] 07/16/2022 20:10:07/17/1907/16/2022 BASIC METAB OLIC PANEL glucose 90 mg/dL (70-99 ) Not Available [facility] (Centralized Electronic Ordering - All Locations) Patient Can Go To The Location Of Their Choice, [id number] 07/16/2022 21:46:18 07/17/1907/16/2022 BASIC METAB OLIC PANEL BUN 9 mg/dL (8-23) Not Available [facility] (Centralized Electronic Ordering - All Locations) Patient Can Go To The Location Of Their Choice, [id number] 07/16/2022 21:46:18 07/17/1907/16/2022 BASIC METAB OLIC PANEL creatinine 0.9 mg/dL (0.5-1 .0) Not Available [facility] (Centralized Electronic Ordering - All Locations) Patient Can Go To The Location Of Their Choice, [id number] 07/16/2022 21:46:18 07/17/1907/16/2022 BASIC METAB OLIC PANEL sodium 141 mmol/ L (133-1 45) Not Available [facility] (Centralized Electronic Ordering - All Locations) Patient Can Go To The Location Of Their Choice, 07/16/2022 21:46:18 07/17/1907/16/2022 BASIC METAB OLIC PANEL potassium 4.9 mmol/ L (3.6-5 .2) Not Available [facility] (Centralized Electronic Ordering - All Locations) Patient Can Go To The Location Of Their Choice, 07/16/2022 21:46:18 07/17/1907/16/2022 BASIC METAB OLIC PANEL chloride 105 mmol/ L (98-10 7) Not Available [facility] (Centralized Electronic Ordering - All Locations) Patient Can Go To The Location Of Their Choice, 07/16/2022 21:46:18 07/17/1907/16/2022 BASIC METAB OLIC PANEL bicarbonate 27 mmol/ L (22-29 ) Not Available [facility] (Centralized Electronic Ordering - All Locations) Patient Can Go To The Location Of Their Choice, 07/16/2022 21:46:18 07/17/1907/16/2022 BASIC METAB OLIC PANEL anion gap 9 (4-17) Not Available [facility] (Centralized Electronic Ordering - All Locations) Patient Can Go To The Location Of Their Choice, 07/16/2022 21:46:18 07/17/1907/16/2022 BASIC METAB OLIC PANEL calcium 10.0 mg/dL (8.6-1 0.5) Not Available [facility] (Centralized Electronic Ordering - All Locations) Patient Can Go To The Location Of Their Choice, 07/16/2022 21:46:18 07/17/1907/16/2022 BASIC METAB OLIC PANEL estimated GFR creatinine 70 mL/mi n/1.7 3_M2 Creat inine based estim ated glome ranulfor chitr ation (eGFR ) in adult s is calcu lated using the Natio nal Kidne y Found ation recom neli d 2020 CKD-E PI equat ion. Estim ates GFR from serum creat inine , age and sex. Not Available [facility] (Centralized Electronic Ordering - All Locations) Patient Can Go To The Location Of Their Choice, 07/16/2022 21:46:18 07/17/19 23 07/16/2022 LDL LAKEISHA STERO L, DIREC T LDL cholesterol, direct 164 mg/dL (<130) high Not Available [facility] (Centralized [facility] Ordering - All Locations) Patient Can Go To The Location Of Their Choice, 07/16/2022 21:46:20 07/17/19 23 07/16/2022 ENRIQUE TIN ferritin 112 NG/mL (14-28 3) Not Available [facility] (Centralized Electronic Ordering - All Locations) Patient Can Go To The Location Of Their Choice, 07/16/2022 21:46:21 07/17/19 23 07/16/2022 IRON & TIBC iron 83 mcg/d L (30-16 0) Not Available [facility] (Centralized Electronic Ordering - All Locations) Patient Can Go To The Location Of Their Choice, 07/16/2022 21:46:22 07/17/19 23 07/16/2022 IRON & TIBC unsaturated iron binding capac 224 mcg/d L (110-3 70) Not Available [facility] (Centralized Electronic Ordering - All Locations) Patient Can Go To The Location Of Their Choice, 07/16/2022 21:46:22 07/17/19 23 07/16/2022 IRON & TIBC est T. iron bind capacity 307 mcg/d L (140-5 30) Not Available [facility] (Centralized Electronic Ordering - All Locations) Patient Can Go To The Location Of Their Choice, 07/16/2022 21:46:22 07/17/19 23 07/16/2022 IRON & TIBC % iron saturation 27 % (20-55 ) Not Available [facility] (Centralized Electronic Ordering - All Locations) Patient Can Go To The Location Of Their Choice, 07/16/2022 21:46:22 07/17/19 23 07/16/2022 NON FASTI NG LIPID PANEL cholesterol, total 255 mg/dL (<200) high Not Available [facility] (Centralized [facility] Ordering - All Locations) Patient Can Go To The Location Of Their Choice, 07/16/2022 21:46:22 07/17/19 23 07/16/2022 NON FASTI NG LIPID PANEL HDL chol 58 mg/dL (>39) Not Available [facility] (Centralized Electronic Ordering - All Locations) Patient Can Go To The Location Of Their Choice, 07/16/2022 21:46:22 07/17/1907/16/2022 NON FASTI NG LIPID PANEL non HDL cholesterol (calc) 197 mg/dL (<160) high Not Available [facility] (Centralized Electronic Ordering - All Locations) Patient Can Go To The Location Of Their Choice, 07/16/2022 21:46:22 07/17/1907/16/2022 TSH WITH REFLE X TO FT4 TSH 5.30 uIU/m L (0.4-4 .2) high Not Available [facility] (Centralized Electronic Ordering - All Locations) Patient Can Go To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 oral route as needed for 30 days. 2013 active Not Available Not Available Not Avai lable tramadol 37.5 mg-acetam inophen 325 mg tablet EVERY EIGHT HOURS, NEEDED 11/05 completed RECORDED 11/06/19 14 3:08PM BY THUY NOBLE MD, ANNOTATI ON/VIDA DUM; Not Available Not Available Not Available valacyclo vir 1 gram tablet TAKE 1 TABLET BY MOUTH EVERY DAY FOR 7 DAYS active Not Available Not Available No t Available senna 8.6 mg tablet Take 2 tablets every day by oral route. 01/14 completed Not Available Not Available Not Available meloxicam 15 mg tablet TAKE 1 TABLET BY MOUTH ONCE DAILY active Not Available Not Available No t Available sucralfat e 1 gram tablet TAKE 1 TABLET BY MOUTH TWICE DAILY 07/05 completed Not Available Not Available Not Available Medrol (George) 4 mg tablets in a dose pack Take 1 dose pk by oral route. 06/17 completed Not Available Not Available Not Available prednison e 20 mg tablet DAILY 12/13 completed RECORDED 01/15/20 11 11:01AM BY NOMI CAMACHO I, MEDICATI ON AUTO-STACI CTIVATIO N; Not Available Not Available Not Available Zithromax Z-George 250 mg tablet TAKE 2 TABLETS (500 MG) BY ORAL ROUTE ONCE DAILY FOR 1 DAY THEN 1 TABLET (250 MG) BY ORAL ROUTE ONCE DAILY FOR 4 DAYS 2014 active Not Available Not Available Not Avai lable pseudoeph edrine ER 120 mg tablet,ex tended release TWO TIMES DAILY 02/26 completed RECORDED 03/04/20 11 12:51PM BY THUY NOBLE MD, MEDICATI ON AUTO-STACI CTIVATIO N; Not Available Not Available Not Available ciproflox acin 250 mg tablet TWO TIMES DAILY 01/14 completed RECORDED 01/15/20 12 8:20AM BY JULIETA OSBORNE PA-C, MEDICATI ON AUTO-STACI CTIVATIO N; Not Available Not Available Not Available valacyclo vir 500 mg tablet Take 1 tablet every day by oral route for 9 days. 11/02 completed Not Available Not Available Not Available sulfameth oxazole 800 mg-trimet hoprim 160 mg tablet TWO TIMES DAILY 06/26 completed Not Available Not Available Not Available hydrocodo ne 10 mg-acetam inophen 325 mg tablet 04/12 completed RECORDED 04/12/20 13 1:12PM BY THUY NOBLE MD, ANNOTATI ON/ADDEN DUM; Not Available Not Available Not Available omeprazol e 40 mg capsule,d elayed release TK 1 C PO BID B MEALS 11/02 completed Not Available Not Available Not Available tramadol 50 mg tablet TAKE 1 TABLET BY MOUTH TWICE DAILY FOR 14 DAYS NEEDED 07/08 completed Not Available Not Available Not Available triamcino lone acetonide 0.1 % topical cream APPLY A THIN LAYER TO THE AFFECTED AREA(S) BY TOPICAL ROUTE 2 TIMES PER DAY 06/17 completed Not Available Not Available Not Available amoxicill in 500 mg tablet Take 2 tablets every 8 hours by oral route for 7 days. 12/17 completed Not Available Not Available Not Available baclofen 20 mg tablet TAKE 1 TABLET BY MOUTH TWICE DAILY 06/17 completed Not Available Not Available Not Available pantopraz ole 20 mg tablet,de layed release DAILY 04/12 completed RECORDED 04/12/20 10 9:16AM BY ENID FERNANDEZ, KINGATI ON/ADDEN DUM; Not Available Not Available Not Available oxycodone -acetamin ophen 5 mg-325 mg tablet AT BEDTIME 06/23 completed RECORDED 06/23/19 13 3:59PM BY VERNON MA MA, OFFICE VISIT; Not Available Not Available Not Available ofloxacin 0.3 % ear drops INSTILL 10 DROPS (1.5 MG) INTO AFFECTED EAR(S) BY OTIC ROUTE daily 12/17 completed Not Available Not Available Not Available amoxicill in 875 mg tablet TWO TIMES DAILY 02/26 completed RECORDED 03/04/20 11 12:51PM BY THUY NOBLE MD, MEDICATI ON AUTO-STACI CTIVATIO N; Not Available Not Available Not Available citalopra m 20 mg tablet TAKE 1 AND 1/2 TABLETS BY MOUTH EVERY DAY 11/02 completed Not Available Not Available Not Available famotidin e 20 mg tablet Take 1 tablet twice a day by oral route for 180 days. 01/08 completed Not Available Not Available Not Available lorazepam 0.5 mg tablet 10/11 completed Not Available Not Available Not Available nifedipin e 10 mg capsule BID 2007 active RECORDED 08/27/19 08 3:09PM BY THUY NOBLE MD, ANNOTATI ON/ DUM; Not Available Not Available Not Available baclofen 10 mg tablet Take 1 tablet every day by oral route at bedtime for 30 days. 2014 active Not Available Not Available Not Avai lable cephalexi n 500 mg capsule TAKE 1 CAPSULE BY MOUTH TWICE DAILY FOR 7 DAYS 02/17 completed Not Available Not Available Not Available pantopraz ole 40 mg tablet,de layed release TAKE 1 TABLET BY MOUTH EVERY DAY DIRECTED active Not Available Not Available No t Available lansopraz ole 30 mg capsule,d elayed release DAILY 04/12 completed RECORDED 04/12/20 10 9:17AM BY ENID FERNANDEZ, ANNOTATI ON/ DUM; Not Available Not Available Not Available nicotine 21 mg/24 hr daily transderm al patch DAILY 10/22 completed RECORDED 11/04/19 14 1:25PM BY NOMI CAMACHO I, MEDICATI ON AUTO-STACI CTIVATIO N; Not Available Not Available Not Available gabapenti n 300 mg capsule 10/10 completed Not Available Not Available Not Available omeprazol e 20 mg capsule,d elayed release TK 1 C PO QD 03/30 completed Not Available Not Available Not Available hydroxyzi ne HCl 25 mg tablet TAKE 1 TABLET BY MOUTH THREE TIMES DAILY NEEDED FOR ITCHING 02/17 completed Not Available Not Available Not Available mupirocin 2 % topical ointment APPLY TOPICALL Y TO THE AFFECTED AREA TWICE DAILY FOR 10 DAYS active Not Available Not Available No t Available ergocalci ferol (vitamin D2) 1,250 mcg (50,000 unit) capsule EVERY WEEK FOR 12 WEEKS 11/25 completed RECORDED 12/21/19 08 2:45PM BY THUY NOBLE MD, MEDICATI ON AUTO-STACI CTIVATIO N; Not Available Not Available Not Available lorazepam 1 mg tablet Take 1 tablet as needed by oral route for 8 days. 07/16 completed Not Available Not Available Not Available polyethyl bethel glycol 3350 17 gram/dose oral powder 07/16 completed Not Available Not Available Not Available lovastati n 20 mg tablet QD 2007 active RECORDED 08/27/19 08 3:10PM BY THUY NOBLE MD, ANNOTATI ON/ADDEN DUM; Not Available Not Available Not Available Naprosyn 500 mg tablet TWO TIMES DAILY, NEEDED 02/04 completed RECORDED 02/05/20 13 8:26AM BY THUY NOBLE MD, ANNOTATI ON/ADDEN DUM; Not Available Not Available Not Available fluticaso ne propionat e 50 mcg/actua tion nasal spray,roly pension Inhale 2 sprays every day by intranas al route each nostril for 30 days. 06/17 completed Not Available Not Available Not Available amitripty line 100 mg tablet AT BEDTIME 08/31 completed RECORDED 09/01/19 14 3:33PM BY JOSELYN JONES MA, OFFICE VISIT; Not Available Not Available Not Available doxycycli ne hyclate 100 mg tablet 02/17 completed Not Available Not Available Not Available dicyclomi ne 10 mg capsule TAKE 1 CAPSULE BY MOUTH THREE TIMES DAILY NEEDED 05/30 completed Not Available Not Available Not Available loratadin e 10 mg tablet TAKE 1 TABLET BY MOUTH EVERY DAY FOR 30 DAYS 01/08 completed Not Available Not Available Not Available nicotine 7 mg/24 hr daily transderm al patch APPLY 1 PATCH EXTERNAL LY TO THE SKIN EVERY DAY FOR 14 DAYS DIRECTED 06/26 completed Not Available Not Available Not Available magnesium 200 mg tablet Take 2 tablets every day by oral route. 08/06 completed Not Available Not Available Not Available albuterol (refill) 90 mcg/actua tion aerosol inhaler EVERY 4 HOURS PRN 06/04 completed RECORDED 06/10/19 12 9:42AM BY JULIETA OSBORNE PA-C, MEDICATI ON AUTO-STACI CTIVATIO N; Not Available Not Available Not Available Zithromax 500 mg tablet Take 1 tablet every day by oral route for 7 days. 06/17 completed Not Available Not Available Not Available escitalop meka 10 mg tablet DAILY 11/14 completed RECORDED 11/16/19 11 2:50PM BY THUY NOBLE MD, MEDICATI ON AUTO-STACI CTIVATIO N;TAKE 1 DAILY FOR 14 DAYS THEN 2 DAILY Not Available Not Available Not Available cyclobenz aprine 5 mg tablet TAKE 1 TABLET BY MOUTH TWICE DAILY NEEDED FOR MUSCLE SPASM active Not Available Not Available No t Available rosuvasta tin 10 mg tablet TAKE 1 TABLET BY MOUTH EVERY DAY AT BEDTIME active Not Available Not Available No t Available Glucosami ne Chondroit in Maximum Strength 500 mg-400 mg capsule Take 1 capsule every day by oral route for 90 days. 07/15 completed Not Available Not Available Not Available duloxetin e 30 mg capsule,d elayed release TAKE 1 CAPSULE BY MOUTH EVERY DAY active Not Available Not Available No t Available duloxetin e 60 mg capsule,d elayed release TAKE 1 CAPSULE BY MOUTH EVERY DAY 2024 active Not Available Not Available Not Avai lable pregabali n 50 mg capsule TAKE 1 CAPSULE BY MOUTH TWICE DAILY active Not Available Not Available No t Available chlorhexi dine gluconate 0.12 % mouthwash USE 1/2 OUNCE TO RINSE FOR 30 SECONDS TWICE DAILY AFTER BRUSHING AND FLOSSING active Not Available Not Available No t Available meloxicam 1 Tablet PO QD 01/04 completed Not Available Not Available Not Available nystatin FOUR TIMES DAILY 06/04 completed RECORDED 06/10/19 12 9:42AM BY JULIETA OSBORNE, PA-C, MEDICATI ON AUTO-STACI CTIVATIO N;SWISH AND RETAIN IN MOUTH BEFORE SPITTING Not Available Not Available Not Available Prilosec take 1 tab daily by mouth 01/08 completed Not Available Not Available Not Available Slow Release Iron active Not Available Not Available Not Available 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 11/02 completed Not Available Not Available Not Available Mucinex DM 60 mg-1,200 mg tablet,ex tended release 12 hr Take 1 tablet twice a day by oral route for 7 days. 06/17 completed Not Available Not Available Not Available diclofena c 1 % topical gel 01/03 completed Not Available Not Available Not Available cholecalc iferol (vitamin D3) 50 mcg (2,000 unit) capsule DAILY 01/07 completed RECORDED 01/08/20 12 12:01PM BY JOSELYN JONES MA, OFFICE VISIT; Not Available Not Available Not Available Calcium 600 + D(3) 600 mg-5 mcg (200 unit) capsule Take 1 capsule twice a day by oral route for 90 days. 10/05 completed Not Available Not Available Not Available calcium gluconate 45 mg (500 mg) tablet DAILY 09/27 completed RECORDED 09/28/19 10 2:21PM BY JAZMIN PICKERING ON/ADDEN DUM; Not Available Not Available Not Available sodium,po tassium,m ag sulfates 17.5 gram-3.13 gram-1.6 gram oral soln FOLLOW PACKAGE DIRECTIO NS 05/30 completed Not Available Not Available Not Available Fiber (psyllium husk-suga r) 3.4 gram/7 gram oral powder Take 1 tbsp twice a day by oral route as directed . 07/16 completed Not Available Not Available Not Available BinaxNOW COVID-19 Ag Self Test kit TEST DIRECTED TODAY 10/05 completed Not Available Not Available Not Available Vitals Date Recorded Body height Provider Name an d Address Organization Details Last Updated DateTime 05/30/2022 160.66 cm Julieta Pandey MA [facility] 05/30/2022 10:28:12 Date Recorded Body height Body mass index (BMI) Body weight Oxygen saturation Oxygen saturation in Arterial blood by Pulse oximetry Heart rate Body temperature Systolic blood pressure Diastolic blood pressure Provider Name and Address Organization Details Last Updated DateTime 3 160.66 cm 32.2 kg/m2 52276.2 g 98 % 98 % 89 /min 98.6 [degF] 115 mm[Hg] 70 mm[Hg] Karina Weaver MA [facility] 3 14:33:36 Date Recorded Body height Body mass index (BMI) Body weight Heart rate Oxygen saturation Oxygen saturation in Arterial blood by Pulse oximetry Body temperature Systolic blood pressure Diastolic blood pressure Provider Name and Address Organization Details Last Updated DateTime 2 160.66 cm 32.6 kg/m2 91061.3 9 g 92 /min 98 % 98 % 97.88 [degF] 131 mm[Hg] 82 mm[Hg] Corry Moody MA [facility] 2 14:17:01 Date Recorded Body height Body mass index (BMI) Body weight Heart rate Oxygen saturation Oxygen saturation in Arterial blood by Pulse oximetry Body temperature Systolic blood pressure Diastolic blood pressure Provider Name and Address Organization Details Last Updated DateTime 3 160.66 cm 30.8 kg/m2 25481.6 6 g 99 /min 98 % 98 % 98.5 [degF] 127 mm[Hg] 85 mm[Hg] Gabby Flanagan MA [facility] 3 14:52:48 Social History Question Answer Notes LastModified by Organizat ion Details LastModified Time Tobacco Smoking Status Current Every Day [facility] 15:07:28 Do You Have An Advance Directive? Yes [email or web address] Information not available 01/03/2021 Is Blood Transfusion Acceptable In An Emergency? Yes [id number] Information not available 02/29/2020 What Is Your Level Of Caffeine Consumption? Moderate 5 Cups Daily Of Tea And Coffee [id number] Information not available 02/29/2020 How Much Tobacco Do You Chew? None [id number] Information not available 02/29/2020 What Type Of Diet Are You Following? REGULAR [id number] Information not available 02/29/2020 Which Illicit Or Recreational Drugs Have You Used? None [id number] Information not available 02/29/2020 Live Alone Or With Others? Alone [email or web address] Information not available 01/03/2021 Do You Take Precautions To Prevent Distracted Driving? Yes [employer] Information not available 12/13/2014 How Often Do You Need To Have Someone Help You When You Read Instructions, Pamphlets, Or Other Written Material From Your Doctor Or Pharmacy? Never [employer] Information not available 12/13/2014 Have You Served In The ? No [employer] Information not available 01/09/2016 Have You Or Anyone In Your Household Had Any Of The Following Symptoms In The Last 14 Days: Sore Throat, Cough, Chills, Body Aches For Unknown Reasons, Shortness Of Breath For Unknown Reasons, Loss Of Smell, Loss Of Taste, Fever At Or Greater Than 100 Degrees Fahrenheit? No [email or web address] Information not available 01/03/2021 Are You Or Anyone In Your Household A Health Care Provider Or Emergency Responder? No [email or web address] Information not available 01/03/2021 To The Best Of Your Knowledge Have You Been In Close Proximity To Any Individual Who Tested Positive For COVID-19? No [email or web address] Information not available 01/03/2021 Have You Recently Traveled To A COVID-19 High Risk Area Or Gathering In The Last 10 Days? No [email or web address] Information not available 01/03/2021 What Was The Date Of Your Most Recent Tobacco Screening? 02/17/2023 Information not available 02/17/2023 How Many Children Do You Have? 1 Nickie [id number] Information not available 02/29/2020 What Is Your Current Pack Years? 30ormorepack years Information not available 09/05/2022 Seat Belts Used Routinely Yes [email or web address] Information not available 01/03/2021 Are You Sexually Active? No [id number] Information not available 02/29/2020 Smoke Alarm In Home Yes Information not available 01/03/2021 At What Age Did You Start Smoking Tobacco? 12 [id number] Information not available 02/29/2020 How Much Tobacco Do You Smoke? 0.5 PPD Information not available 02/17/2023 Do You Use Sunscreen Routinely? No [id number] Information not available 02/29/2020 How Many Years Have You Smoked Tobacco? 45 [id number] Information not available 02/29/2020 Sex: Unknown Functional Status Question Answer Note LastModified by Organizat ion Details LastModified Time Do you use any illicit or recreational drugs? No Information not available 09/05/2022 Do you or have you ever used any other forms of tobacco or nicotine? No Information not available 01/14/2022 What is your level of alcohol consumption? Occasional [id number] Information not available 02/29/2020 Are you currently employed? No retired [id number] Information not available 02/29/2020 Are you able to walk? [email or web address] Information not available 01/14/2022 Are you able to care for yourself? 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 Occasional swimming; stretching ; walking [id number] Information not available 02/29/2020 Mental Status None recorded. Family History Relationship Description Onset Age of this Age Resolved Age Notes LastModified by Organization Details LastModified Time Mother Coronary arterioscler osis 75 [email or web address] Not available 13:59:54 Father Coronary arterioscler osis 52 [email or web address] Not available 13:59:54 Sister Malignant neoplastic disease 52 [email or web address] Not available 06/27 14:53:52 Brother Malignant neoplastic disease 63 [email or web address] Not available 06/27 14:57:28 Brother Malignant neoplastic disease [email or web address] Not available 06/27 14:57:21 Medical History Condition Response Anxiety Disorder Y Acid Reflux (GERD) Y Fibromyalgia Y Arthritis Y Reflux/GERD Y High Cholesterol Y Gynecological History Statement/Question Response Date of Last Pap Smear 09/03/2011 Date of Last Colonoscopy 10/24/2005 Most Recent Mammogram 12/29/2020 Most Recent Bone Density 09/09/2018 Obstetrics History GPAL:G 0 P 0 0 0 0 Immunizations Vaccine Type Date Status Note Provider Name and Address Organization Details Recorded Time Influenza, high-dose, trivalent, PF 018 cancelled patient objection Not Available [facility] 05/15/2019 02:22:04 Influenza, split virus, quadrivalent, PF 018 cancelled patient objection Not Available [facility] 05/15/2019 02:22:08 pneumococcal polysaccharide PPV23 018 completed Not Available [facility] 05/15/2019 02:21:28 Pneumococcal conjugate PCV 13 019 completed Not Available [facility] 05/15/2019 02:21:38 Td (adult), 2 Lf tetanus toxoid, preservative free, adsorbed 019 completed Not Available [facility] 05/15/2019 02:21:30 Tdap 009 completed Not Available [facility] 06/26/2022 23:17:41 Influenza, split virus, trivalent, preservative 011 completed Not Available [facility] 06/26/2022 23:17:41 Influenza, high-dose, quadrivalent, PF 022 cancelled patient objection Thuy Fernandes MD [address], [address], [facility] 01/18/2022 13:12:51 Past Encounters Encounter ID Performer Location Encounter Start Date Encounter Closed Date Diagnosis/Indication Diagnosis SNOMED-CT Code Diagnosis ICD10 Code Diagnosis Note [id number] [address] [address] [place] [address] 08/28/2006 00:00:00 [id number] auto[facility]Comm erce [address] [facility] [address] [place] [address] 09/16/2006 00:00:00 [id number] auto[facility]Comm erce [address] [facility] [address] [place] [address] 11/21/2005 00:00:00 [id number] auto[facility]Comm erce [address] [facility],[address] [place] [address] 10/04/2005 00:00:00 [id number] auto[facility]Comm erce [address] [facility] [address] [place] [address] 07/04/2005 00:00:00 [id number] auto[facility] erce [address] [facility],[address] [place] [address] 10/20/2006 00:00:00 [id number] auto[facility]Comm erce [address] [facility],[address] [place] [address] 12/30/2006 00:00:00 [id number] auto[facility]Comm erce [address] [facility],[address] [place] [address] 08/27/2007 00:00:00 [id number] auto[facility]Comm erce [address] [facility],[address] [place] [address] 08/02/2008 00:00:00 [id number] auto[facility]Comm erce [address] [facility],[address] [place] [address] 08/31/2008 00:00:00 [id number] auto[facility]Comm erce [address] [facility] [address] [place] [address] 12/06/2008 00:00:00 [id number] auto[facility]Comm erce [address] [facility],[address] [place] [address] 03/06/2009 00:00:00 [id number] auto[facility] [address] [place] [address] 09/05/2009 00:00:00 [id number] auto[facility]Comm erce [address] [facility] [address] [place] [address] 11/14/2009 00:00:00 [id number] auto[facility]Comm erce [address] [facility],[address] [place] [address] 12/07/2009 00:00:00 [id number] auto[facility]Comm erce [address] [facility],[address] [place] [address] 03/12/2010 00:00:00 [id number] autoEComm erce [address] [facility],[address] [place] [address] 04/30/2010 00:00:00 [id number] autoEComm erce [address] [facility],[address] [place] [address] 07/21/2010 00:00:00 [id number] autoEComm erce [address] [facility],[address] [place] [address] 07/31/2010 00:00:00 [id number] autoEComm erce [address] [facility],[address] [place] [address] 10/23/2010 00:00:00 [id number] autoEComm erce [address] [facility],[address] [place] [address] 11/15/2010 00:00:00 [id number] autoEComm erce [address] [facility],[address] [place] [address] 12/08/2010 00:00:00 [id number] autoEComm erce [address] [facility],[address] [place] [address] 12/11/2010 00:00:00 [id number] autoEComm erce [address] [facility],[address] [place] [address] 01/14/2011 00:00:00 [id number] autoEComm erce [address] [facility],[address] [place] [address] 02/12/2011 00:00:00 [id number] [address] [address] [place] [address] 04/16/2011 00:00:00 [id number] auto[facility] erce [address] [place] [address] 05/28/2011 00:00:00 [id number] auto[facility]Comm erce [address] [place] [address] 06/18/2011 00:00:00 [id number] auto[facility] erce [address] [place] [address] 09/18/2011 00:00:00 [id number] autoEComm erce [address] [facility] [address] [place] [address] 12/17/2011 00:00:00 [id number] autoEComm erce [address] [facility] [address] [place] [address] 01/08/2012 00:00:00 [id number] autoEComm erce [address] [facility],[address] [place] [address] 02/05/2012 00:00:00 [id number] [employer] [address] [facility] [address] [place] [address] 03/23/2012 00:00:00 [id number] [employer] [address] [facility],[address] [place] [address] 06/23/2012 00:00:00 [id number] [employer] [address] [place] [address] 09/23/2012 00:00:00 [id number] [employer] [address] [place] [address] 01/13/2013 00:00:00 [id number] [employer] erce [address] [facility],[address] [place] [address] 04/12/2013 00:00:00 [id number] [employer] [address] [place] [address] 08/31/2013 00:00:00 [id number] [facility] [facility] [address] [facility] [address] [place] [address] 10/20/2013 00:00:00 [id number] Thuy Fernandes MD Main Office [address] [address] [place] [address] 01/24/2014 15:43:41 01/24/2014 16:30:01 Fibromyositis 57264293 Hypercholesterolemia 25897148 [id number] Thuy Fernandes MD Main Office [address] [facility] [address] 04/11/2014 16:21:27 04/11/2014 17:02:37 Malaise and fatigue 430989392 there is no clear etiology for this. She has been seen by neurology for fibromyalg ia and this could certainly be playing a role with her fatigue. Depression may also be a problem. Must also consider sleep apnea and menopausal /hormonal etiology. [id number] Thuy Fernandes MD Main Office [address] [address] [place] [address] 07/11/2014 16:17:31 07/11/2014 16:53:14 Neck pain 35571092 I will call Dr Gutierrez to discuss her MRI and future management . Tobacco de pendence syndrome 68977178 Menopause present 356536292 she was advised to start calcium with vitamin and take it twice a day. Anxiety state uses lorazepam prn. [id number] Thuy Fernandes MD Main Office [address] [address] [place] [address] 10/11/2014 12:52:37 10/11/2014 13:32:53 Acute sinusitis 04376608 Anxiety state uses lorazepam prn. [id number] Thuy Fernandes MD Main Office [address] [address] [place] [address] 12/13/2014 14:34:33 12/13/2014 16:03:42 Adult health examination 021290257 Hypercholesterolemia 87413128 Otalgia 02827877 Anxiety state 274952942 uses lorazepam prn. Generally under control with celexa. [id number] Kathy Hendricks PA-C Main Office [address] [facility] [address] [place] [address] 12/30/2014 16:01:06 12/30/2014 16:55:33 Epigastric pain 34765500 Uper abdominal /epigastri c pain. NOt new for pt. ? prompted by restarting Atorvastat in recently or increased stress. Possibly related to exacerbati on of IBS. Need GI notes and endoscopy notes. Pt. was advised to take Omeprazole and Dicyclomin e as directed by the GI, labs ordered to r/o infectious etiology or pancreatic etiology which are less likely. Review after labs. If pain worsens or fever , go to the ER. [id number] Thuy Fernandes MD Main Office [address] [address] [place] [address] 06/15/2015 13:40:34 06/15/2015 14:28:22 Pure hypercholesterolemia 681520888 E78.0 Gastroesop hageal reflux disease 413025996 K21.9 Irritable bowel syndrome 72329675 K58.9 she has an upcoming GI appointmen t [id number] Thuy Fernandes MD Main Office [address] [address] [place] [address] 01/09/2016 14:39:19 01/09/2016 15:50:16 Adult health examination 331816499 Z00.00 UTD with immunizati ons, colonoscop y and mammogram. Pure hypercholesterolemia 720251806 E78.0 Recurrent major depressive episodes 361594690 F33.9 stable on current meds [id number] Thuy Fernandes MD Main Office [address] [address] [place] [address] 01/23/2016 10:56:06 01/23/2016 11:37:15 Acute sinusitis 31897715 J01.90 This is more likely allergic rhinitis and not an infection. No need for abx at this time. Muscle pain 11604058 M79 .1 This may represent fibromyalg ia since she has had problems with this but it is unusual that she would have such localized pain. She had an abdominal CT scan done which showed OA in her lumbar spine and hips. She may benefit from PT or injections and has already made an appointmen t with [facility], Dr Montes to be seen in about 4 weeks. [id number] Kathy Hendricks PA-C Main Office [address] [address] [place] [address] 08/07/2016 13:43:07 08/07/2016 14:49:40 Pruritic rash 88194282 L28.2 Pt. is advised to moisturize her skin twice per day and use steroid cream on top BID as well as Zyrtec. Call office if pruritis persists. [id number] Thuy Fernandes MD Main Office [address] [address] [place] [address] 08/28/2016 14:24:48 08/28/2016 15:18:24 Hyperlipidemia 60209799 E78.5 She stopped the atorvastat in but states that she will restart it. 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 She has tried amytriptyl ine, savella, and lyrica w/o much relief. She has also had multiple courses of PT and water therapy but only gets temporary relief. She is currently taking baclofen which gives some help and she is considerin g trigger point injections . [id number] Kathy Hendricks PA-C Main Office [address] [address] [place] [address] 03/11/2017 13:22:27 03/11/2017 13:56:43 Pneumonitis 277875202 J95.851 Wheezing 64156127 R06.2 Tobacco de pendence syndrome 65853786 F17.200 [id number] Thuy Fernandes MD Main Office [address] [address] [place] [address] 06/17/2017 13:07:15 06/17/2017 14:03:34 Adult health examination 361798951 Z00.00 Due for colonoscop y in 2019 Tobacco de pendence syndrome 74680872 F17.200 Anxiety state 730490829 F41.1 uses lorazepam prn. Generally under control with celexa. Lumbosacra l radiculopathy 8545904 M54.16 Followed by physiatry at a [facility] practice in [facility] Screening for malignant neoplasm of breast 901763664 Z12.39 Menopause present 709493 006 Z78.0 Taking calcium daily Immunization refused 275 965390 Z28.21 Administra tion of pneumococcal vaccine 50956310 Z23 Hyperlipidemia 95139661 E78.5 Recurrent major depressive episodes 061710093 F33.9 stable on current meds [id number] Kathy Hendricks PA-C Main Office [address] [facility] [address] [place] [address] 08/06/2017 13:01:01 08/06/2017 13:35:13 Sacroiliac disorder 810274826 M25.9 F/u with Dr. Juarez. Aby on of lumbar intervertebral disc 78053076 M51.36 F/u with the physiatry as scheduled. Inguinal pain 087636824 R10.2 secondary to sprained inguinal ligament. Pt. is advised to restart doing pelvic stretches, reassured. Will also be started on Meloxicam for her back to see if inflammati on could be treated. [id number] Zac Hendricsk PA-C Main Office [address] [address] [place] [address] 09/16/2017 11:41:11 09/16/2017 12:35:13 Pain of multiple joints 46072247 M25.50 h/o fibromyalg ia, but will check for possible lyme Fatigue 22988107 R53.83 Vitamin D deficiency 347 71142 E55.9 Sacroiliac disorder 8 29331 M25.9 encouraged pt to call Dr. Kyle's office for f/u visit - ? will get second opinion c Dr. Domingo Fibromyalgia 732285373 M 79.7 cont meds as dir for now [id number] Zac Hendricks PA-C Main Office [address] [facility] 207 [place] [address] 09/25/2017 13:50:01 09/25/2017 14:34:56 Otitis externa 2404499 H60.92 ? if caused by underlying OM - see below Otitis media 58536605 H6 6.92 rec probiotic supp or guyanese yogurt while on abx [id number] Zac Hendricks PA-C Main Office [address] [facility] [address] [place] [address] 10/01/2017 11:24:09 10/01/2017 12:07:35 Otitis externa 2254330 H60.92 ~ 50% better than last week - ? if caused by underlying OM - see below - finish abx as dir Otitis media 63306911 H6 6.92 rec probiotic supp or guyanese yogurt while on abx - cont abx as dir for another week - if no sig improvemen t then consider ent eval Depressive disorder 2333 9007 F32.9 seen by counsellor in past, on citalopram 20mg x yrs - will increase to 30mg Disorder of vitamin D 38 9615525 E56.9 she took a supp to boost her immune system - level was high - advised her to stop Fibromyalgia 745509004 M 79.7 see above - encouraged pt to resume aquatherap y [id number] Zac Hendricks PA-C Main Office [address] [place] [address] 10/09/2017 12:56:04 10/09/2017 14:14:06 Anxiety state 879514256 F41.1 continue meds as prescribed and f/u with therapy Recurrent major depressive episodes 410373039 F33.9 continue meds as prescribed and f/u with therapy - doing better c increased celexa Acute supp urative otitis media with spontaneous rupture of ear drum 76995886 H66.013 Pt took 2 weeks to finish 1 week course of Amox so encouraged her to refill Abx and take the 2 tablets 3 times a day. Will get ENT eval. Advised to not stick finger or any foreign objects into ear. cont probiotics while on abx Fibromyalgia 775201252 M 79.7 see above - encouraged pt to resume aquatherap y Sacroiliac disorder 2027 30947 M25.9 encouraged pt to call Dr. Kyle's office for f/u visit - ? will get second opinion c Dr. Domingo - pending 8.8 25 minute office visit with greater than 50% of the visit face-to-fa ce with the patient and/or family providing counseling and/or coordinati on of care. 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 subluxed from hep??? - check xray for further eval and get PT involved - pt declined, cont hep Sacroiliac disorder 2027 [address] Domingo - no note to review - has pending further specialist referral, encouraged pt to stay in contact c their group and have them fax us their note, and call Dr. Kyle's office too - maybe Dr Domingo rec they take care of referral - ? he rec see ortho for her hips - see below 25 minute office visit with greater than 50% of the visit face-to-fa ce with the patient and/or family providing counseling and/or coordinati on of care. Pain of hip region 49194 002 M25.551 M25.552 see above - will check xrays B hips to help Dr. 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 has had gluc < 100 in 3.18 -- no evidence of pre-dm. rec see nutrtition ist Mild asthma 535843771 J4 5.909 Fibromyalgia 625905977 M 79.7 see above - encouraged pt to resume aquatherap y which has helped a lot -- pt's friend sees a rheum in [facility] but she does not recall his name - she will call us then I can make referral [id number] Zac Hendricks PA-C Main Office [address] [address] 04/09/2018 11:28:52 04/09/2018 12:18:44 Chronic pain syndrome 987398262 G89.4 cont to f/u c pain mgmt will arrange for PT / aquatherap y referral at pt request Strain of right trapezius muscle 7790266166 6271311 S29.012A [id number] Justyna burrows MD Main Office [address] [address] 06/26/2018 14:57:07 06/26/2018 15:47:48 Complaining of - pain in toe 542484160 M79.674 M79.675 unclear etiology for toe discomfort . Circulatio n appears normal . ? if related to back problem. PT. reassured , will take Tylenol and continue observing. Will report if pain persist or worsens. IN the mean time , will wear more comfortabl e wider shoewear. [id number] Thuy Fernandes MD Main Office [address] [address] 07/15/2018 14:15:07 07/15/2018 15:25:50 Adult health examination 249506684 Z00.00 Due for colonoscop y in 2020 Screening for malignant neoplasm of lung 245981564 Z87.891 Eligible patients must have >=30 pack years Administra tion of pneumococcal vaccine 78924535 Z23 Requires a tetanus booster 339860574 Z23 Anxiety state 885744787 F41.1 No longer under good control with celexa. Hyperlipidemia 36934116 E78.5 Tobacco de pendence syndrome 99218184 F17.200 [id number] Thuy Fernandes MD Main Office [address] [address] [place] [address] 08/12/2018 14:10:27 08/12/2018 15:10:00 Hyperlipidemia 15397352 E78.5 Fibromyositis 66421247 M 79.7 She would like to try savella. Advised that we start the cholestero l med first and go up on her dose of citalopram and not make any other changes at this time. We will revisit it at her next appointmen t. Recurrent major depressive episodes 265173668 F33.9 Will increase citalopram from 20 to 30 mg as recommende d by Dr Marks's consult note and if not helpful may go up to 40 mg daily. [id number] Thuy Fernandes MD Main Office [address] [address] [place] [address] 09/29/2018 13:32:08 09/29/2018 14:34:47 Anxiety state 852596627 F41.1 Doing better since we increased her dose of celexa to 40 mg on the recommenda tion of Dr Marks. Fibromyositis 45554354 M 79.7 She cannot take savella because it interferes with some of her other meds. Osteoporosis 49154767 M8 1.0 Continue with calcium and vitamin D and look into prolia injection. [id number] Thuy Fernandes MD Main Office [address] [address] [place] [address] 01/04/2019 14:12:12 01/04/2019 15:39:47 Anxiety state 259135978 F41.1 Continues to well. She decreased her dose of celexa from 40 to 20 mg on her own and anxiety well-contr olled. Fibromyositis 13792458 M 79.7 She cannot take savella because it interferes with some of her other meds. Screening for malignant neoplasm of breast 441316675 Z12.39 Hyperlipidemia 92933689 E78.5 She stopped her statin last month because she felt like it . Will recheck her lipids before her PE. [id number] Thuy [facility]es MD [facility] [address] [place] [address] 10/11/2019 09:22:37 10/11/2019 12:54:18 Adult health examination 113921996 Z00.00 Due for colonoscop y in 2019 Recurrent major depressive episodes 727621682 F33.0 Will increase citalopram as recommende d by Dr Marks's consult note if needed to 40 mg but currently doing well on 30 mg. Anxiety state 396620528 F41.1 Continues to do well. Degenerati on of lumbar intervertebral disc 05126893 M51.36 Hyperlipidemia 59731044 E78.5 Stopped her statin on her own. Pain of le ft hip joint 8642504947 66570 M25.552 She will f/u with [facility] as needed. I will get records to review the plan and the possibilit y of surgery. [id number] Tay Clemons MD [facility] [address] [facility] 207 [facility] [address] 01/04/2020 08:36:47 01/04/2020 11:19:55 Seasonal allergic rhinitis 561434246 J30.2 Fatigue 08009253 R53.83 Pain of mu ltiple joints 24547301 M25.50 pt requests add'l testing for joint pain, elbert hla-b27 Chronic pain syndrome 37 4909561 G89.4 encouraged pt to cont to f/u c pain mgmt as well as consider aquatherap y and scheduled tylenol in addition to her prn tramadol / flexeril [id number] Tay Clemons MD [facility] [address] [facility] 207 [place] [address] 03/30/2020 12:19:10 03/30/2020 16:27:48 Gastritis 8664462 K29.70 rec increase ppi to bid - hopefully ins will cover - if not, take otc to make take bid pt requested second opinion c different gi group Pain of mu ltiple joints 66155440 M25.50 neg. w/u last month - likely d/t fibromyalg ia - seen by pain management , [facility], rheum Major depr essive disorder 204516782 F32.1 see above - has been on citalopram x yrs - will give trial of duloxetine , stop citalopram Fibromyalgia 097045333 M 79.7 see above [id number] Thuy Fernandes MD Main Office [address] [facility] [address] [place] [address] 01/03/2021 13:20:30 01/03/2021 14:30:06 Adult health examination 344057887 Z00.00 Due for colonoscop y. Screening for malignant neoplasm of colon 087161264 Z12.11 Major depr essive disorder 552078911 F32.1 Pruritic disorder 941101 002 L29.9 Hyperlipidemia 19240887 E78.5 Stopped her statin on her own. Tobacco de pendence syndrome 67006423 F17.200 Screening for malignant neoplasm of lung 720547937 Z87.891 Eligible patients must have >=30 pack years [id number] Thuy Fernandes MD [facility] [address] [facility] [address] [place] [address] 07/05/2021 08:57:45 07/05/2021 15:16:17 Fibromyositis 83039945 M79.7 She cannot take savella because it interferes with some of her other meds. Major depr essive disorder 460767142 F32.1 Doing well with duloxetine 30 mg qd. Intermitte nt claudication 17693146 I73.9 She is a lifetime smoker. Pain of le ft hip joint 6127202599 16680 M25.552 She will f/u with [facility] as needed. I will get records to review the plan and the possibilit y of surgery. Pain of ri ght shoulder joint 2964999232 1350762 M25.511 She will try diclofenac gel. Other options are PT and ortho referral. [id number] Tay Clemons MD [facility] [address] [facility] [address] [place] [place] [address] 10/05/2021 12:30:54 10/05/2021 15:04:49 Diarrhea 48843229 R19.7 Sounds like she may be experienci ng overflow incontinen ce. Will start a more conservati ve constipati on regimen and modify as symptoms dictate. Headache 61805850 R51.9 Adequate hydration advised. APAP prn. Call inb/worse. Constipation 66140175 K5 9.00 Will try to address with increased water intake and fiber supplement ation. Ultimately needs colonoscop y which is scheduled. Irritable bowel syndrome 57632314 K58.9 Has dicyclomin e at home. Advised to use sparingly and d/c if not helping as it may worsen her constipati on. [id number] Thuy Fernandes MD Main Office [address] [address] [place] [address] 01/14/2022 14:02:07 01/14/2022 15:04:33 Adult health examination 184470421 Z00.00 Due for colonoscop y and she has already had a pre-colono scopy screening. She is UTD with tetanus and pneumonia vaccines and will get the flu vaccine today. She is nervous about getting the COVID vaccine. Influenza vaccine needed 1425888552 106 Z23 Hyperlipidemia 30806914 E78.5 Stopped her statin on her own. Cholesterl very high. She will start on crestor. Fibromyositis 64690387 M 79.7 She cannot take savella because it interferes with some of her other meds. She is taking cymbalta and followed by rheum. Irritable bowel syndrome 17146444 K58.9 Intermitte nt; followed by GI. Screening for malignant neoplasm of colon 885191146 Z12.11 [id number] Thuy Fernandes MD [facility] [address] [address] [place] [address] 05/30/2022 09:45:45 05/31/2022 08:58:23 Low back pain 800185650 M54.50 She will hold her celebrex for 1 month and then restart it. Dr Soria, pain mgmt, feels that this will give the receptors a chance to up-regulat e and then the med will work again. In the meantime she will use tramadol for the pain. She should have a f/u with Dr Soria in mid-July. She is currently taking 45 mg of cymbalta which may be increased to 60 if needed and if she is tolerating it. [id number] Thuy Fernandes MD Main Office [address] [facility] [address] [place] [address] 07/16/2022 14:19:06 07/16/2022 15:25:39 Fatigue 50674843 R53.83 Probably secondary to her fibromyalg ia and poor sleep. Hyperlipidemia 92184146 E78.5 Maybe not be c/w meds. Will check fasting lipid level. Fibromyositis 46359933 M 79.7 Seen by rheumatgordy villarreal, doing better on lyrica. Impairment of balance 38 9413288 R26.89 [id number] Thuy Fernandes MD [facility] [address] [facility] [address] [place] [address] 09/05/2022 12:33:59 09/05/2022 14:02:42 Blood in urine 29821472 R31.9 SYMPTOMS:b urning with urination? nofrequenc y? nohematuri a? yes it's just red lower abdominal pain? nosymptoms similar to previous UTI? no POSSIBLE CONTRAINDI CATIONS TO TELEPHONE TREATMENT: > 65 years of age? yesfevers? norecent UTI (within 1 month)? nonew low back pain? nonausea or vomiting? no ? nohistory of interstiti al cystitis? no PROVIDER ACTION: Reviewed nursing notes?Tod mmended action Antibiotic treatment [id number] Thuy Fernandes MD Main Office [address] [facility] 207 [place] [address] 02/17/2023 14:33:57 02/17/2023 15:51:51 Adult health examination 961498390 Z00.00 Due for colonoscop y and she has already had a pre-colono scopy screening in February 2022 but a colonoscop y has yet to be scheduled. She is UTD with tetanus and pneumonia vaccines but declines the flu and COVID vaccines. She is nervous about potential SE's from the COVID vaccine. Varicella vaccination 68 936394 Z23 Advised to get this at her pharmacy. Peripheral vascular disease 828450109 I73.9 Pruritic disorder 008010 002 L29.9 She was taking hydroxyzin e with minimal help. Advance care planning 71 8391162 Z71.89 She was given HCP and MOLST forms and instructed to complete and bring in a copy. Hyperlipidemia 64051510 E78.5 Maybe not be c/w meds. Will check fasting lipid level. Fatigue 02596225 R53.83 Probably secondary to her fibromyalg ia and poor sleep. Major depr essive disorder 708282402 F32.1 She will increase the dose to 2 tabs daily. Health Concerns Section Related Observation LastModified by Organization Detai ls LastModified Time None Recorded Concern Status LastModified by Organization Details LastModified Time None Recorded Advance Directives Directive Y: Payers Encounter Date Sequence Insurance Name Policy Number Policy Pacheco Covered Member ID Pacheco Member ID Guarantor Name 01/14/2022 1 [facility] Laura A Lucien [id number] Laura A Lucien 05/30/2022 1 [facility] Laura A Lucien [id number] Laura A Lucien 07/16/2022 1 [facility] Laura A Lucien [id number] Laura A Lucien 09/05/2022 1 [facility] Laura A Lucien [id number] Laura A Lucien 02/17/2023 1 [facility] Laura A Lucien [id number] Laura A Lucien Notes Date Note Type Note Provider Name and Address Organization Details Recorded Time 022 text/ht ml Generic HPI TemplateReported bypatient.Notes:She has been safe during the pandemic and wears a mask when outside and keeps her distance. We discussed the COVID vaccine and she is no longer considering this. She is hesitant because she feels that vaccines exacerbate her fibromyalgia. Medicare Annual Wellness VisitReported bypatient.Diet and Nutrition:high carbohydrate meals;low calcium intake Fracture Risk:no history of fractures Physical Activity:does not exercise on a regular basis Depression Risk:sleep disturbances or insomnia;agitated;history of mood disorders;history of depression Orientation:no disorientation to time; no disorientation to date; no disorientation to place Concentration and Memory:no decreased concentrating ability; no memory lapses or loss; does not forget words Speech/Motor difficulties:no speech difficulties; no difficulty expressing formulated concepts Hearing:no loss of hearing Vision:no vision problems Activities of Daily Living:able to bathe with limited or no assistance; able to contol urination and bowels; able to dress with limited or no assistance; able to feed self with limited or no assistance; able to get out of chair or bed with limited or no assistance; able to groom with limited or no assistance; able to toilet with limited or no assistance Instrumental Activities of Daily Living:able to do house work with limited or no assistance; able to grocery shop with limited or no assistance; able to manage medications with limited or no assistance; able to manage money with limited or no assistance; able to prepare meals with limited or no assistance; able to use the phone with limited or no assistance Falls Risk Assessment:no frequent falls while walking She moved to a new apartment in [facility] a couple of years ago and is having problems with the mgmt but she plans on staying. She is back in touch with her estranged daughter and she continues to see her granddaughter but both relationships are geraldine. Thuy Fernandes MD [address] [address], [place], [id number] , [facility] 01/18/2022 13:15:23 023 text/ht ml Went to rheum, Dr Parnell. Took celebrex and duloxetine with some help. She then went to pain mgmt, Dr Soria who sent her to PT but was dismissed after 2 appointments because she couldn't tolerate the routine. Her also advised her to stop the celebrex because it hasn't been helping. He feels that if she stops it for a month then the receptors will be up-regulated and it will work again. She started limping because of increased pain in her right hip. Thuy Fernandes MD [address] [facility] [address], [place], [id number] , [facility] 05/31/2022 11:37:57 023 text/ht ml Anxiety/DepressionReported bypatient.Quality:increased anxiety Severity:interference with household activities;interference with sleep Context:major life stressors Associated Symptoms:no significant weight gain; no significant weight loss; appetite good; maintaining functionalityHyperlipidemiaReported bypatient.Type of hyperlipidemia:hypercholesterolemia Duration:chronic Control:not at goal Current Therapy:currently taking: (atorvastatin but is not always c/w meds.) Compliance:noncompliant;does not exercise Her fibromyalgia has been under better control recently since she was started on lyrica. She is followed by Dr Hadley. She still has fatigue and trouble sleeping. We discussed good sleep hygiene and exercise as a way to help control her fibromyalgia. She has been having problems with impaired balance and is fearful about falling. She is requesting a cane to use especially when she is outside. Thuy Fernandes MD [address] [address], [place], [phone] , [facility] 07/17/2022 13:06:05 023 text/ht ml Was in her usual state of health and woke this morning and noted red urine when she urinated. Denied any UTI symptoms such as dysuria, hesitancy, frequency or incontinence. Also denies CVA pain, n/v, f/c. The second time she urinated today was normal color. She denies eating any beets or taking new meds. Thuy Fernandes MD [address] [facility] [address], [place], [phone] , [facility] 09/05/2022 13:59:17 023 text/ht ml Generic HPI TemplateReported bypatient.Notes:She has been safe during the pandemic and wears a mask when outside and keeps her distance. We discussed the COVID vaccine and she is no longer considering this. She is hesitant because she feels that vaccines exacerbate her fibromyalgia. Medicare Annual Wellness VisitReported bypatient.Diet and Nutrition:high carbohydrate meals;low calcium intake Fracture Risk:no history of fractures Physical Activity:does not exercise on a regular basis Depression Risk:sleep disturbances or insomnia;agitated;history of mood disorders;history of depression Orientation:no disorientation to time; no disorientation to date; no disorientation to place Concentration and Memory:no decreased concentrating ability; no memory lapses or loss; does not forget words Speech/Motor difficulties:no speech difficulties; no difficulty expressing formulated concepts Hearing:no loss of hearing Vision:no vision problems Activities of Daily Living:able to bathe with limited or no assistance; able to contol urination and bowels; able to dress with limited or no assistance; able to feed self with limited or no assistance; able to get out of chair or bed with limited or no assistance; able to groom with limited or no assistance; able to toilet with limited or no assistance Instrumental Activities of Daily Living:able to do house work with limited or no assistance; able to grocery shop with limited or no assistance; able to manage medications with limited or no assistance; able to manage money with limited or no assistance; able to prepare meals with limited or no assistance; able to use the phone with limited or no assistance Falls Risk Assessment:no frequent falls while walking She moved to a new apartment in [facility] a couple of years ago and is having problems with the mgmt but she plans on staying. She is back in touch with her estranged daughter and she continues to see her granddaughter but both relationships continue to be geraldine. Her relationship with her daughter is on-again/off-again. Thuy Fernandes MD [address] [address], [place], [phone] , [facility] 02/18/2023 08:35:13 OBGyn Episode No OBEpisode recorded.
[2024-09-23 13:07] VITALS: BP 132/76; PULSE 75; O2SAT 98; BMI 32.8
--- NOTE | 2024-09-23 13:07 | MHC.OFFVIS ---
Vital Signs 09/23/24 13:07 Height 5 ft 3 in Weight 185 lb 3.013 oz BMI 32.8 BP 132/76 Blood Pressure Location Lt brachial Position Sitting Pulse 75 Pulse Source Pulse Oximeter Pulse Oximetry (%) 98 Oxygen Delivery Method Room Air Intake Visit Reasons: FMS Intake Note: Patient presents for follow up on FM and lab review today. Patient would like refill of Cyclobenzaprine today. Allergies No Known Allergies Allergy (Verified 09/23/24 13:09) Medication List - Last Reconciled 09/23/24 by Katiuska Wu MD cyclobenzaprine 5 mg PO BID PRN duloxetine 60 mg PO DAILY pantoprazole 40 mg PO DAILY PRN pregabalin 50 mg PO BID rosuvastatin 10 mg PO BEDTIME HPI Comments Details: Patient is a 74 y.o. female with GERD, hyperlipidemia, polyarticular osteoarthritis, osteoporosis and fibromyalgia here today for follow up Interval History: Patient last seen 08/06/[address] Heredia. At that time she was following up for her fibromyalgia and polyarticular osteoarthritis. At that time she was on duloxetine 60 mg daily, Lyrica 50 mg daily as well. She was complaining of left buttock, hip and bilateral thigh pain. She had an MRI of the left hip 04/2023 which showed iliopsoas bursitis and gluteus tendinopathy. There was no evidence of active synovitis and her fibromyalgia management was discussed in terms of non pharmacologic treatment including exercising stretching. She was also recommended to increase the pregabalin from 50 mg once a day to twice a day. Today, Still complaining of diffuse pain Started seeing pain management where she gets trigger point injections and trochanteric bursa injections Rheumatologic History: Most recent history by Dr. Hadley 01/2023: The patient returns for evaluation of her osteoarthritis and fibromyalgia. She was last seen in November of 2021. She relates difficulty with transportation so has not been able to keep many appointments. She continues to complain of lower back pain that radiates to the left buttock more than the right. It is worse with more prolonged standing or walking. She says it does limit her walking at this point. There is no paresthesia in the leg. There is no change in bowel or bladder habits. She remains on duloxetine 60 mg daily. She had been on Celebrex and Lyrica but decided to stop them as they were not that helpful. She feels that taking the cyclobenzaprine was helpful and it did not make her sedated. She had some GI appointments that she could not keep because of transportation issues. She again wants to do something about the left buttock and lower back pains. She says she has been to 2 pain clinics and was offered injections but they were not helpful. She did see a surgeon a few years ago and no surgery was recommended. Other areas of pain besides the back and buttock include the hands, shoulders, and neck. She has not seen any joint swelling. With difficulty walking she spent more time at home and feels somewhat isolated. She also says that she has been having trouble communicating with people, she often makes statements that people do not understand or agree with and that upsets them. 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 Low back pain Social History Household Members Other:: lives alone Housing: Apartment Are you a primary personal carer to a significant other at home: No Do you presently have visiting nurse or other home services: No 75 years or older and lives alone: No Alcohol intake: never Patient Tobacco Use Status: Current everyday Tobacco user Tobacco use type: Cigarette Cigarette Packs Per Day: 7 e-Cigarette/Vaping Use: Never Used service: No Current occupational status: disabled Review of Systems Const Details: Review of Systems Constitutional: Denies fever, chills, weight loss ENT: Denies vision changes, eye pain or eye redness, dental caries, dry mouth GI: Denies nausea, vomiting, diarrhea, abdominal pain, change in BM Pulm: Denies SOB, LACY, hemoptysis, wheezing Cards: Denies chest pain, palpitations Skin: Denies Raynaud's, rash, nail changes, photosensitivity, 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 Well appearing and in no apparent painful distress HEENT Conjunctiva and sclera clear. ?Pupils equal round and reactive to light. ?No lymphadenopathy. ? CHEST/RESPIRATORY SYSTEM Normal respiratory effort and able to speak in complete sentences. ?Clear to auscultation bilaterally. ?No crackles, rales, rhonchi, wheezes heard. CARDIAC SYSTEM Regular rate and rhythm. ?S1 and S2 heard no murmurs. ?Radial pulses intact bilaterally MSK Hands: ?Able to make a fist. No synovitis noted to the MCPs, PIPs or DIPs. ?No tenderness to palpation of these joints. No deformities noted. ? Wrists: ?Full range of motion at the wrists without pain. ?No tenderness to palpation or synovitis noted to the wrists. Elbows: Full range of motion without pain. No tenderness, weakness, swelling, increased warmth or erythema. Shoulders: Full range of active range of motion without pain. No tenderness, weakness, swelling, increased warmth or erythema. Hips: Full range of motion without pain. Hip bursa: Tenderness to palpation bilaterally Knees: ?Full range of motion. ?No tenderness, swelling, increased warmth or erythema.?No effusion. Crepitations felt bilaterally Ankles: Full range of motion. ?No tenderness, swelling, increased warmth or erythema.? Feet: ?Negative squeeze test. ?No tenderness to palpation or swelling of the MTPs. Tender points:?Tenderness to palpation of the bilateral trapezius, supraspinatus, greater trochanters, anterior costochondral junctions, bilateral gluteal areas, bilateral suboccipital muscle insertions SKIN Skin intact without rashes. Results Reviewed Results Reviewed: No recent imaging or blood work Assessment & Plan Assessment & Plan (1) Fibromyalgia: Code(s): M79.7 - Fibromyalgia Category: Medical Plan: #Fibromyalgia Patient is a 74 y.o. female with polyarticular OA and fibromyalgia here today for follow up. Again discussed the non pharmacologic management of fibromyalgia. Encourage regular stretching exercises. Refill her medications Plan - Cyclobenzaprine 5mg bid prn - Pregabalin 50mg bid - Continue ortho follow up - RTC 1 year Plan I spent 20 minutes reviewing the record and labs, taking a history, examining the patient, discussing the treatment plan, ordering diagnostic work up and documenting in the medical record Coding Level of Care Code Est Pt Level 3 (19752) Diagnoses Fibromyalgia M79.7
== END 2024-09-23 13:39 | disposition home or self-care (01) ==
PROVIDERS: PCP Nurse Practitioner Family; Visit Provider Student in an Organized Health Care Education/Training Program
DX: M79.7 Fibromyalgia (principal)
CPT/HCPCS: 99213

== ENCOUNTER → 2024-09-23 13:00 | Outpatient (BNVA) | payer MEDICARE, MEDICAID, SELFPAY | PROVIDERS: PCP Nurse Practitioner Family; Visit Provider Student in an Organized Health Care Education/Training Program | DX: M79.7 Fibromyalgia (principal) | CPT/HCPCS: 99212 ==